=== PATIENT | male | born 1945 | race Caucasian/White ===

== ENCOUNTER 2016-10-15 17:01 | Inpatient (IN) ==
--- NOTE | 2016-10-15 17:18 | Emergency Department Note ---
Disposition Clinical Impression: Community acquired pneumonia, Atrial fibrillation with RVR Disposition: Admitted As Inpatient Condition: Fair Referrals: Hiren Adame Jr, MD [Primary Care Provider] - Forms: ED Satisfaction Letter Time of Disposition: 18:12 SOB HPI - General Chief Complaint: ED Shortness of Breath/Dyspnea Stated Complaint: "I think I have pneumonia" Time Seen by Provider: 10/15/16 17:11 Source: patient, family Limitations: no limitations Nursing Notes Reviewed: Yes Vital Signs Reviewed: Yes - History of Present Illness 71-year-old who has been sick for a couple weeks he was seen at the urgent care and given antibiotics to follow-up with his doctor still hasn't felt any better next has developed somewhat worse he thinks he may have pneumonia. Patient has a cough. He does have a history of atrial fibrillation when he arrives here his heart rates in the 130s. The patient states he has not have an EKG done at the urgent care or at his doctor's office. The patient did have a cardiac catheter back in April but showed severe triple vessel disease and an EF of 35%. Pt Subjective Complaint: shortness of breath, cough Onset (ago): week(s) Context: recent illness Severity: mild, moderate Consistency/Duration: constant Improves with: nothing Worsens with: exertion Known history of: congestive heart failure Associated symptoms: Reports: cough, wheezing Treatment prior to arrival: none Cough Description: Involuntary Cough Frequency: Intermittent - Related Data Home Medications Medication Instructions Recorded Confirmed Cholecalciferol (D-3) [Vitamin D] 1,000 unit PO DAILY 05/24/16 09/12/16 LORazepam [Ativan] 1 mg PO TID PRN 05/24/16 09/12/16 Omeprazole [PriLOSEC] 40 mg PO DAILY 05/24/16 09/12/16 Pyridoxine HCl [Vitamin B-6] 100 mg PO DAILY MDD 100mg 05/24/16 09/12/16 Aspirin Enteric Coated [Aspirin EC] 81 mg PO DAILY 09/12/16 09/12/16 Atorvastatin [Lipitor] 80 mg PO HS 09/12/16 09/12/16 Carvedilol [Coreg] 12.5 mg PO BIDWM 09/12/16 09/12/16 Cyproheptadine HCl 4 mg PO TID 09/12/16 09/12/16 Digoxin [Lanoxin] 0.25 mg PO DAILY 09/12/16 09/12/16 Fluticasone Propionate Nasal 50 mcg NS BID 09/12/16 09/12/16 [Flonase] Furosemide [Lasix] 40 mg PO BID 09/12/16 09/12/16 Lisinopril [Zestril] 5 mg PO DAILY 09/12/16 09/12/16 Metoclopramide HCl 5 mg PO BID PRN 09/12/16 09/12/16 Oxygen 2 l IN AD 09/12/16 09/12/16 Spironolactone [Aldactone] 12.5 mg PO DAILY MDD 12.5mg 09/12/16 09/12/16 Previous Rx's Medication Instructions Recorded Ciprofloxacin HCl [Cipro] 500 mg PO BID #20 tablet 09/12/16 Allergies Allergy/AdvReac Type Severity Reaction Status Date / Time Penicillins AdvReac Nausea Verified 05/24/16 13:13 Constitutional: Denies: fever, chills, weakness, weight change Eyes: Denies: eye pain, eye discharge, vision change ENT ED: Denies: ear pain, throat pain, dental pain, hearing loss, epistaxis, congestion, dysphagia Cardiovascular: Denies: chest pain, palpitations, dyspnea on exertion, edema, syncope Respiratory: Reports: cough, dyspnea, wheezes. Denies: hemoptysis, stridor Gastrointestinal: Denies: abdominal pain, nausea, vomiting, diarrhea, constipation, hematemesis, melena, hematochezia Genitourinary: Denies: urgency, dysuria, frequency, hematuria Musculoskeletal: Denies: back pain, neck pain, arthralgia, myalgia Integumentary: Denies: rash, abrasion, lesions Neurological: Denies: headache, weakness, numbness, paresthesias, confusion, abnormal gait, vertigo Psychiatric: Denies: anxiety, depression, suicidal thoughts, homicidal thoughts , auditory hallucinations, visual hallucinations Endocrine: Denies: fatigue Hematological/Lymphatic: Denies: easy bleeding, easy bruising Allergic/Immunologic: Denies: facial swelling, urticaria Past Medical History - Past Medical History Medical history: Reports: asthma, atrial fibrillation, CHF, coronary artery disease, CVA, GERD, hyperlipidemia, hypertension, kidney stones, myocardial infarction, other Surgical history: Reports: coronary bypass (CABG) (quad in 1994) Psychiatric history: Reports: depression - Social History Smoking Status: Former smoker Smokeless Tobacco Status: No Alcohol use: Reports: none Drug use: Reports: none Physical Exam - General Limitations: no limitations General appearance: alert - Head Head exam: atraumatic, normocephalic, normal inspection - Eye Eye exam: Present: normal appearance, PERRL, EOMI - ENT ENT exam: normal exam, normal oropharynx, mucous membranes moist - Neck Neck exam: Present: normal inspection, full ROM, trachea midline - Chest Chest inspection: Present: normal inspection, symmetric chest wall rise - Respiratory Respiratory exam: Present: wheezes - Cardiovascular Cardiovascular exam: Present: tachycardia, irregular rhythm - Abdominal Exam Abdominal exam: Present: soft, Non-Tender. Absent: tenderness, distention, guarding, rebound, rigidity - Extremities Exam Extremities exam: Present: normal inspection, full ROM. Absent: tenderness, pedal edema - Expanded Lower Extremity Exam Neurovascular/Tendon exam: Absent: motor deficit, sensory deficit, tendon deficit Gait: observed and normal - Back Exam Back exam: Present: normal inspection, full ROM. Absent: tenderness - Neurological Exam Neurological exam: Present: alert, oriented X3 - Psychiatric Psychiatric exam: Present: normal affect, normal mood - Skin Skin exam: Present: warm, dry, intact, normal color Course - Reevaluation(s) Reevaluation #1: 1-year-old gentleman with a history of atrial fibrillation comes in with increasing cough gesture and he feels he has pneumonia. Chest x-ray did indeed show a right lower lobe airspace disease. Patient given IV antibiotics. Patient was also found to have A. fib with RVR. Previous cardiac catheter shows an EF of 35%. Consultation with Dr. Llanos cardiology recommends IV Lopressor 5 mg every 6 when necessary and increase his Coreg to 25 mg twice a day. Patient will be admitted. Time: 18:22 - Consultations Consultation #1: Discussed with Dr. Sundeep Llanos, he recommends Lopressor 5 mg IV every 6 when necessary and increase the Coreg 25 mg twice a day. Time: 18:13 Consultation #2: Discussed with , admit. Time: 18:33 Vital Signs Temperature 0 F L 10/15/16 17:03 Pulse Rate 84 10/15/16 17:03 Respiratory Rate 20 10/15/16 17:03 Blood Pressure 133/69 10/15/16 17:03 O2 Sat by Pulse Oximetry 84 L 10/15/16 17:03 Temperature 0 F L 10/15/16 17:03 Pulse Rate 117 10/15/16 18:30 Respiratory Rate 18 10/15/16 18:30 Blood Pressure 105/71 10/15/16 18:30 O2 Sat by Pulse Oximetry 93 L 10/15/16 18:30 Oxygen Delivery Oxygen Delivery Nasal Cannula Shortness of Breath/Dyspnea - Lab Data Lab results reviewed: Yes I reviewed the patient's lab results. Result diagrams: 10/15/16 17:21 10/15/16 17:21 Lab Results 10/15/16 10/15/16 10/15/16 Range/Units 17:21 17:21 17:21 WBC 26.7 H (4.3-11.1) K/mcL RBC 5.18 (4.19-5.50) M/mcL Hgb 13.7 (12.9-16.9) g/dL Hct 43.7 (37.5-50.1) % MCV 84.4 (83.0-100.0) fL MCH 26.4 L (28.0-33.3) pg MCHC 31.4 L (31.6-35.5) g/dL RDW 15.6 H (11.5-14.5) % Plt Count 415 H (140-400) K/mcL MPV 10.0 (9.4-12.4) fL Seg Neutrophils % 92.0 % Band Neutrophils % 2.0 (0-4) % Lymphocytes % 6.0 % Neutrophils # 25.1 H (1.6-8.9) K/mcL Lymphocytes # 1.6 (0.6-4.6) K/mcL Platelet Estimate Increased H (Normal) Anisocytosis 1+ A (Not Present) Sodium 140 (136-145) mEq/L Potassium 4.4 (3.5-4.5) mEq/L Chloride 100 (98-109) mEq/L Carbon Dioxide 29 (19-29) mEq/L BUN 18 (8-26) mg/dL Creatinine 1.46 H (0.72-1.25) mg/dL Est GFR ( Amer) 58 L (> 60) Est GFR (Non-Af Amer) 48 L (> 60) BUN/Creatinine Ratio 12 (6-26) Glucose 143 H (70-99) mg/dL Calculated Osmolality 294 (280-300) Lactic Acid 2.1 (0.5-2.2) mmol/L Calcium 9.4 (8.6-10.8) mg/dL Troponin I (0-0.03) ng/mL B-Natriuretic Peptide (0-100) pg/mL 10/15/16 10/15/16 Range/Units 17:21 17:21 WBC (4.3-11.1) K/mcL RBC (4.19-5.50) M/mcL Hgb (12.9-16.9) g/dL Hct (37.5-50.1) % MCV (83.0-100.0) fL MCH (28.0-33.3) pg MCHC (31.6-35.5) g/dL RDW (11.5-14.5) % Plt Count (140-400) K/mcL MPV (9.4-12.4) fL Seg Neutrophils % % Band Neutrophils % (0-4) % Lymphocytes % % Neutrophils # (1.6-8.9) K/mcL Lymphocytes # (0.6-4.6) K/mcL Platelet Estimate (Normal) Anisocytosis (Not Present) Sodium (136-145) mEq/L Potassium (3.5-4.5) mEq/L Chloride (98-109) mEq/L Carbon Dioxide (19-29) mEq/L BUN (8-26) mg/dL Creatinine (0.72-1.25) mg/dL Est GFR ( Amer) (> 60) Est GFR (Non-Af Amer) (> 60) BUN/Creatinine Ratio (6-26) Glucose (70-99) mg/dL Calculated Osmolality (280-300) Lactic Acid (0.5-2.2) mmol/L Calcium (8.6-10.8) mg/dL Troponin I 0.01 (0-0.03) ng/mL B-Natriuretic Peptide 163 H (0-100) pg/mL - Radiology Data Radiology results reviewed: Yes I reviewed the patient's radiology results. Chest X-Ray 10/15/16 17:11 IMPRESSION: Suspect patchy airspace disease in the right lung base. D/ / Narayan Swartz MD / Narayan Swartz MD Interpreting Provider: Narayan Swartz MD - EKG Data EKG attestation: Yes I reviewed and interpreted this EKG. Rate: Reports: tachycardia Rhythm: Reports: A.Fib Interpretation: Reports: nonspecific ST-T wave changes Critical Care Time Critical Care Time: Yes Total Critical Care Time: 30 Attestation: The high probability of a clinically significant, sudden or life threatening deterioration of the [cardiovascular] system(s) required my full and direct attention, intervention and personal management. The aggregate critical care time was [30] minutes. This time is in addition to time spent performing reported procedures but includes the following: [x] Data Review and interpretation [x] Patient assessment and monitoring of vital signs [x] Documentation [x] Medication orders and management
[2016-10-15 17:30] LABS: Hemoglobin 13.7 g/dL (12.9-16.9); Mean Corpuscular Volume 84.4 fL (83.0-100.0)
[2016-10-15 17:32] LABS: Hematocrit 43.7 % (37.5-50.1); Mean Corpuscular HGB Conc 31.4 g/dL (31.6-35.5); Mean Corpuscular Hemoglobin 26.4 pg (28.0-33.3); Platelet Count 415 K/mcL (140-400); Red Blood Count 5.18 M/mcL (4.19-5.50); Red Cell Distribution Width 15.6 % (11.5-14.5)
[2016-10-15 17:43] LABS: Calcium 9.4 mg/dL (8.6-10.8); Potassium 4.4 mEq/L (3.5-4.5)
[2016-10-15 17:51] LABS: Lymphocytes # 1.6 K/mcL (0.6-4.6); Neutrophils # 25.1 K/mcL (1.6-8.9)
[2016-10-15 17:52] LABS: Anisocytosis 1+ (Not Present); Platelet Estimate Increased (Normal)
[2016-10-15] MEDS ORDERED: Levofloxacin 750 MG/150 ML 750 MG/150 ML BAG IVPB ONE (18:12)
[2016-10-15] MEDS ORDERED: *HR* Metoprolol 5 MG/5 ML VIAL IVP ONE (18:21)
[2016-10-15] MEDS ORDERED: Acetaminophen 325 MG TABLET PO PRN (22:11)
[2016-10-15] MEDS ORDERED: Naloxone 0.4 MG/ML INJ IVP PRN (22:11)
[2016-10-15] MEDS ORDERED: *HR* OxyCODONE Immed Rel 5 MG TABLET PO PRN (22:11)
[2016-10-15] MEDS ORDERED: *HR* Morphine 2 MG/ML SYRINGE IVP PRN (22:11)
[2016-10-15] MEDS ORDERED: Ondansetron 4 MG/2 ML VIAL IVP PRN (22:11)
[2016-10-15] MEDS ORDERED: Benzonatate 100 MG CAPSULE PO PRN (22:22)
[2016-10-15] MEDS ORDERED: methylPREDNISolone 125 MG/2 ML VIAL IVP STA (22:24)
[2016-10-15] MEDS ORDERED: Nicotine 21 MG PATCH.TD24 TD PRN (22:24)
[2016-10-15] MEDS ORDERED: *HR* Metoprolol 5 MG/5 ML VIAL IVP PRN (22:24)
[2016-10-15] MEDS ORDERED: Albuterol 2.5 MG/3 ML NEBULIZER IH PRN (22:24)
[2016-10-15] MEDS ORDERED: NON-FORMULARY MEDICATION 1 EACH EACH (Oxygen [Oxygen] 2 L) IN SCH (22:30)
[2016-10-15] MEDS ORDERED: *HR* Heparin 5,000 UNIT/ML VIAL SQ SCH (22:30)
[2016-10-15] MEDS ORDERED: *HR* Heparin 5,000 UNIT/ML VIAL IVP ONE (22:40)
[2016-10-15] MEDS ORDERED: Amiodarone Premix 150 MG/100 ML BAG IVPB ONE (22:40)
[2016-10-15] MEDS ORDERED: Magnesium Sulfate 1 GM in D5% in Water 100 ML IVPB ONE (22:40)
[2016-10-15] MEDS ORDERED: Amiodarone Premix 360 MG/200 ML BAG IVC ONE (22:40)
[2016-10-15] MEDS ORDERED: *HR* Heparin 5,000 UNIT/ML VIAL IVP PRN ×2 (22:40)
[2016-10-15] MEDS ORDERED: Amiodarone Premix 360 MG/200 ML BAG IVC SCH (22:45)
--- NOTE | 2016-10-15 22:53 | Internal Med History&Physical ---
Date of Encounter: 10/15/16 Time of Encounter: 22:00 Assessment and Plan (1) Acute and chronic respiratory failure with hypoxia Current visit: Yes Status: Acute . (2) Chronic respiratory failure with hypoxia Current visit: Yes Status: Chronic . (3) Dependence on continuous supplemental oxygen Current visit: Yes Status: Chronic . (4) Ischemic cardiomyopathy Current visit: Yes Status: Chronic . (5) S/P CABG x 4 Current visit: Yes Status: Chronic . (6) Morbid obesity with BMI of 40.0-44.9, adult Current visit: Yes Status: Chronic . (7) Coronary artery disease Current visit: Yes Status: Chronic . Qualifiers: Coronary Disease-Associated Artery/Lesion type: bypass graft [place] vs. transplanted heart: [place] heart Associated angina: angina presence unspecified Qualified Code(s): I25.810 - Atherosclerosis of coronary artery bypass graft(s) without angina pectoris (8) Essential hypertension Current visit: Yes Status: Chronic . (9) Paroxysmal a-fib Current visit: Yes Status: Chronic . (10) Nonsustained ventricular tachycardia Current visit: Yes Status: Acute . (11) Community acquired pneumonia Current visit: Yes Status: Acute . (12) Atrial fibrillation with RVR Current visit: Yes Status: Acute . Internal Medicine - H&P: HPI Chief complaint: Difficulty breathing Admitted From: Emergency Dept Plans for Post Hospital Care: Home History of present illness: Mr. Felix is a 71 year old male is admitted to [facility] to the emergency department presents with complaints of difficulty in breathing and concerns of developing a pneumonia. He reports a cough and chest congestion audible wheezing and malaise of several days' duration. Been sick however for a couple of weeks and has been seen in the urgent care setting and given antibiotic therapy for bronchitis in spite of this he feels that his symptoms worsened cough is worsened feeling of malaise and easy fatigability has progressed. She possesses a history of atrial fibrillation and upon arrival he was found to be in rapid ventricular rate at 130s. In April 2016 the patient had underwent left heart catheterization which revealed severe triple-vessel coronary artery disease and a left ventricular ejection fraction of 35%. She further includes four-vessel coronary artery bypass grafting 1994, a history of CVA, hyperlipidemia, hypertension, CKD, CHF. She responded to intravenous Lopressor for rate control of RVR with a rate improving to 80s. On chronic hypoxic respiratory failure was apparent systemic inflammatory response syndrome criteria and was present at admission. Initial troponin 0.01 BNP 163. Chest x-ray demonstrated a patchy airspace disease in the right lung base. Sepsis criteria and thus present at admission. He is admitted at this time for further evaluation and disposition. The patient was visited and interviewed and examined. Cumulative laboratory and radiographic data base was considered and discussed. Pertinent ancillary medical records including ECW and PCI documentation was reviewed and considered. Given the patient's presenting concerns, past medical history, clinical findings and symptoms, he is admitted at this time will undergo further evaluation and disposition. Orders were written as per the computerized physician parcel post order clerk system.......................................................................... .................... Consultative opinions will be sought as clinical circumstances justify. Pain management needs will be addressed. Laboratory/ radiographic data base will be updated as appropriate. Studies include: Cultures of blood urine sputum, cardiac injury panel, BNP, pt/inr, aptt , metabolic/ hematologic panel, magnesium, phosphorus, ionized calcium, thyroid /lipid profile, A1c, C-peptide, CRP, sedimentation rate, respiratory infection profile, respiratory virus panel, blood gas, UA, lactic acid, serologies, etc. Precautions: Aspiration, fall, delirium protocol/surveillance initiated. Telemetry with continuous hemodynamic monitoring and pulse oximetry initiated. Empiric antibiotic coverage: Intravenous Rocephin and azithromycin pending culture data. Special studies: CT/CTA chest, chest x-ray, telemetry, EKG, echocardiogram. Pulmonary toilet: Incentive spirometry, aerosol bronchodilator, mucolytic, antitussive, supplemental oxygen. Corticosteroid therapy. CPAP/BiPAP supplemental oxygen delivery employed. Aerosol Mucomyst therapy may be employed. Fluid and electrolyte repletion efforts will proceed. Careful attention to fluid balance and renal recovery will be emphasized. Avoidance of nephrotoxic exposure and adverse drug drug interaction in the setting of impaired renal function will be monitored closely. Acute coronary syndrome protocol/surveillance initiated. DVT and PUD prophylaxis initiated: PPI therapy, intermittent pneumatic cuffs. Subcutaneous heparin/Lovenox. Early ambulation will be encouraged. Immunization updates recommended. Influenza and pneumococcal vaccinations as part of ongoing preventative healthcare recommendations strongly recommended. Smoking cessation counseling briefly addressed. Patient is a former smoker. Advanced care directive discussion briefly addressed. Patient does not declare any healthcare restrictions at this time. Cardiovascular risk appraisal and cardiovascular risk reduction efforts will be emphasized. Physical /occupational therapy may be counseled to evaluate patient's functional capacity and progress mobility if circumstances justify. Nutrition/diabetes education counseling may be considered as circumstances justify. Outpatient medication schedules will be reviewed, confirmed and facilitated as appropriate. Reconciliation of home treatments including adjustments, substitutions and reintroduction into the treatment regimen will address necessary maintenance therapies for chronic pre-existing medical conditions. Plan of care has been reviewed and discussed in detail with the patient. Questions addressed. Hospital course dictated by clinical findings, treatment response and potential consultative interventions. Patient is at risk for further acute clinical decline due to age, chief complaints and comorbid conditions. Condition is serious. Prognosis is guarded. CODE STATUS is full. Past Med Surg Social Fam HX - Past Medical History Medical history: asthma, atrial fibrillation, CHF, coronary artery disease, CVA , GERD, hyperlipidemia, hypertension, kidney stones, myocardial infarction, other Psychiatric history: depression - Past Surgical History Surgical History: coronary bypass (CABG) - Social History Smoking Status: Former smoker Smokeless Tobacco Status: No Alcohol use: none Drug use: none - Family History Mother Family Member Ethnicity: Non- Living Status: Hx Family Cancer: Yes (Patient unable to recall.) Father Family Member Ethnicity: Non- Living Status: Hx Family Cancer: Yes (Kidney cancer) Brother Hx Family Cancer: Yes (Lung and bone cancer) Sister Family Member Ethnicity: Non- Living Status: Hx Family Cardiac Disorders: Yes (Heart disease; [place]) Internal Medicine - H&P: Meds Cholecalciferol (D-3) [Vitamin D] 1,000 unit PO DAILY 05/24/16 [History] LORazepam [Ativan] 1 mg PO TID PRN 05/24/16 [History] Omeprazole [PriLOSEC] 40 mg PO DAILY 05/24/16 [History] Pyridoxine HCl [Vitamin B-6] 100 mg PO DAILY 05/24/16 [History] Aspirin Enteric Coated [Aspirin EC] 81 mg PO DAILY 09/12/16 [History] Atorvastatin [Lipitor] 80 mg PO HS 09/12/16 [History] Carvedilol [Coreg] 12.5 mg PO BIDWM 09/12/16 [History] Cyproheptadine HCl 4 mg PO TID 09/12/16 [History] Digoxin [Lanoxin] 0.25 mg PO DAILY 09/12/16 [History] Fluticasone Propionate Nasal [Flonase] 50 mcg NS BID 09/12/16 [History] Furosemide [Lasix] 40 mg PO BID 09/12/16 [History] Lisinopril [Zestril] 5 mg PO DAILY 09/12/16 [History] Metoclopramide HCl 5 mg PO BID PRN 09/12/16 [History] Oxygen 2 l IN AD 09/12/16 [History] Spironolactone [Aldactone] 12.5 mg PO DAILY 09/12/16 [History] Potassium Chloride [Klor-Con Sprinkle] 10 meq PO BID 10/16/16 [History] GuaiFENesin ER [Mucinex] 600 mg PO BID #14 tbbp.12hr 10/19/16 [Rx] Levofloxacin [Levaquin] 500 mg PO DAILY #5 tablet 10/19/16 [Rx] Warfarin [Coumadin] 5 mg PO DAILY@1800 #7 tablet 10/19/16 [Rx] Allergies Penicillins Adverse Reaction (Verified 05/24/16 13:13) Nausea All Systems PM: A 10-system review of systems was performed and is negative for pertinent findings except as documented above in the HPI. - Constitutional Constitutional: fatigue, malaise, no chills, no fever(s), no night sweats - EENT Eyes: as per HPI, no change in vision, no discharge, no pain, no photophobia Ears: as per HPI, no ear discharge, no ear pain, no tinnitus Nose, mouth and throat: as per HPI, no dysphagia, no nasal discharge, no neck pain, no sore throat - Cardiovascular Cardiovascular ROS IM: as per HPI, no chest pain, no diaphoresis, no dyspnea, no lightheadedness, no palpitations, no syncope - Respiratory Respiratory: as per HPI, cough, dyspnea, dyspnea on exertion, wheezing, chest congestion, no excessive phlegm production - Gastrointestinal Gastrointestinal: as per HPI, no abdominal pain, no diarrhea, no hematemesis, no hematochezia, no melena, no nausea, no vomiting - Genitourinary Genitourinary ROS male: as per HPI - Musculoskeletal Musculoskeletal ROS IM: as per HPI, arthralgias, no numbness, no tingling - Integumentary Integumentary IM: as per HPI, no rash, no unusual bruising - Neurological Neurological ROS: as per HPI, no confusion, no convulsions, no focal weakness, no numbness, no tingling, no tremor(s) - Psychiatric Psychiatric: as per HPI - Endocrine Endocrine IM: as per HPI - Hematologic/Lymphatic Hematologic/Lymphatic: as per HPI, no easy bruising - Allergic/Immunologic Allergic/Immunologic: as per HPI - Constitutional Vitals: Temp Pulse Resp BP Pulse Ox 98.4 F 70 20 127/83 93 L 10/15/16 20:11 10/15/16 20:11 10/15/16 20:11 10/15/16 20:11 10/15/16 20:11 Vital Signs Temp Pulse Resp BP Pulse Ox 10/15/16 20:11 98.4 F 70 20 127/83 93 L 10/15/16 20:00 18 105/71 10/15/16 18:30 117 18 105/71 93 L 10/15/16 18:19 131 18 121/79 93 L 10/15/16 17:13 138 26 135/112 92 L 10/15/16 17:03 0 F L 84 20 133/69 84 L Intake and Output 10/15/16 10/15/16 10/15/16 07:59 15:59 23:59 Intake Total 150 / 150 Balance 150 / 150 Intake: IV Fluids 150 / 150 Levaquin 750mg/150 mL 750 150 / 150 mg In 150 ml @ 100 mls/ hr IVPB ONCE ONE Rx#: [id number] Oral 0 / 0 Other: # Voids 0 Weight 111 kg Patient Weight 10/15/16 23:59 Weight 111 kg General appearance: Present: mild distress, A&O X 3, morbidly obese, answers questions appropriately - Head Head exam: Present: atraumatic, normocephalic - Eye Eye exam: Present: EOMI, PERRL, conjuntiva pink, sclera anicteric Pupils: Present: normal accommodation, PERRL - ENT ENT exam: Present: mucous membranes moist, normal oropharynx - Neck Neck exam general surgery: Present: full ROM, supple, trachea midline. Absent: lymphadenopathy - Respiratory Respiratory exam: Present: decreased breath sounds, respiratory distress, rhonchi, wheezes. Absent: accessory muscle use, CTAB, rales - Cardiovascular Cardiovascular exam: Present: irregular rhythm, +S1, +S2, tachycardia. Absent: diastolic murmur, gallop, rubs, systolic murmur - GI/Abdominal GI/Abdominal exam: Present: normal bowel sounds, soft, no peritoneal signs. Absent: distended, tenderness - Extremities Exam Extremities exam: Present: full ROM, warm, radial pulses palpable and symetrical. Absent: calf tenderness, cyanotic, pedal edema - Neurological Exam Neurological exam: Present: alert, CN II-XII intact, oriented X3, no focal deficits. Absent: pronater drift, facial droop, speech deficit - Psychiatric Psychiatric exam: Present: normal affect, normal mood - Skin Skin exam: Present: dry, intact, warm Internal Med - H&P Results - Labs CBC & Chem 7: 10/19/16 04:20 10/18/16 05:32 Labs: Short CBC 10/15/16 Range/Units 17:21 WBC 26.7 H (4.3-11.1) K/mcL Hgb 13.7 (12.9-16.9) g/dL Hct 43.7 (37.5-50.1) % Plt Count 415 H (140-400) K/mcL Neutrophils # 25.1 H (1.6-8.9) K/mcL BMP 10/15/16 Range/Units 17:21 Sodium 140 (136-145) mEq/L Potassium 4.4 (3.5-4.5) mEq/L Chloride 100 (98-109) mEq/L Carbon Dioxide 29 (19-29) mEq/L BUN 18 (8-26) mg/dL Creatinine 1.46 H (0.72-1.25) mg/dL Glucose 143 H (70-99) mg/dL Calcium 9.4 (8.6-10.8) mg/dL Cardiac Enzymes 10/15/16 Range/Units 17:21 Troponin I 0.01 (0-0.03) ng/mL Abnormal lab results WBC 26.7 K/mcL (4.3-11.1) H 10/15/16 17:21 MCH 26.4 pg (28.0-33.3) L 10/15/16 17:21 MCHC 31.4 g/dL (31.6-35.5) L 10/15/16 17:21 RDW 15.6 % (11.5-14.5) H 10/15/16 17:21 Plt Count 415 K/mcL (140-400) H 10/15/16:21 Neutrophils # 25.1 K/mcL (1.6-8.9) H 10/15/16 17:21 Platelet Estimate Increased (Normal) H 10/15/16 17:21 Anisocytosis 1+ (Not Present) A 10/15/16: Creatinine 1.46 mg/dL (0.72-1.25) H 10/15/16 17:21 Est GFR ( Amer) 58 (> 60) L 10/15/16:21 Est GFR (Non-Af Amer) 48 (> 60) L 10/15/16: Glucose 143 mg/dL (70-99) H 10/15/16 17:21 B-Natriuretic Peptide 163 pg/mL (0-100) H 10/15/16:21 Laboratory Last Values WBC 26.7 K/mcL (4.3-11.1) H 10/15/16: RBC 5.18 M/mcL (4.19-5.50) 10/15/16 17:21 Hgb 13.7 g/dL (12.9-16.9) 10/15/16: Hct 43.7 % (37.5-50.1) 10/15/16: MCV 84.4 fL (83.0-100.0) 10/15/16: MCH 26.4 pg (28.0-33.3) L 10/15/16: MCHC 31.4 g/dL (31.6-35.5) L 10/15/16 17:21 RDW 15.6 % (11.5-14.5) H 10/15/16 17:21 Plt Count 415 K/mcL (140-400) H 10/15/16:21 MPV 10.0 fL (9.4-12.4) 10/15/16 17:21 Seg Neutrophils % 92.0 % 10/15/16 17:21 Band Neutrophils % 2.0 % (0-4) 10/15/16 17:21 Lymphocytes % 6.0 % 10/15/16 17:21 Neutrophils # 25.1 K/mcL (1.6-8.9) H 10/15/16 17:21 Lymphocytes # 1.6 K/mcL (0.6-4.6) 10/15/16 17:21 Platelet Estimate Increased (Normal) H 10/15/16 17:21 Anisocytosis 1+ (Not Present) A 10/15/16 17:21 Sodium 140 mEq/L (136-145) 10/15/16 17:21 Potassium 4.4 mEq/L (3.5-4.5) 10/15/16 17:21 Chloride 100 mEq/L (98-109) 10/15/16 17:21 Carbon Dioxide 29 mEq/L (19-29) 10/15/16 17:21 BUN 18 mg/dL (8-26) 10/15/16 17:21 Creatinine 1.46 mg/dL (0.72-1.25) H 10/15/16 17:21 Est GFR ( Amer) 58 (> 60) L 10/15/16 17:21 Est GFR (Non-Af Amer) 48 (> 60) L 10/15/16 17:21 BUN/Creatinine Ratio 12 (6-26) 10/15/16 17:21 Glucose 143 mg/dL (70-99) H 10/15/16 17:21 Calculated Osmolality 294 (280-300) 10/15/16 17:21 Lactic Acid 2.1 mmol/L (0.5-2.2) 10/15/16 17:21 Calcium 9.4 mg/dL (8.6-10.8) 10/15/16 17:21 Troponin I 0.01 ng/mL (0-0.03) 10/15/16 17:21 B-Natriuretic Peptide 163 pg/mL (0-100) H 10/15/16 17:21 - Impressions Chest X-Ray 10/15/16 17:11 IMPRESSION: Suspect patchy airspace disease in the right lung base. D/ / Narayan Swartz MD / Narayan Swartz MD Interpreting Provider: Naryaan Swartz MD - Attending Attestation My signature below is to certify that this patient is under my care and that I, or nurse practitioner, or a physician's assistant golf course superintendent, or resident physician working with me, has had a [id number] encounter with this patient. Allergies Penicillins Adverse Reaction (Verified 05/24/16 13:13) Nausea Home Medications Medication Instructions Recorded Confirmed Type Cholecalciferol (D-3) [Vitamin D] 1,000 unit PO DAILY 05/24/16 10/15/16 History LORazepam [Ativan] 1 mg PO TID PRN 05/24/16 10/15/16 History Omeprazole [PriLOSEC] 40 mg PO DAILY 05/24/16 10/15/16 History Pyridoxine HCl [Vitamin B-6] 100 mg PO DAILY MDD 100mg 05/24/16 10/15/16 History Aspirin Enteric Coated [Aspirin EC] 81 mg PO DAILY 09/12/16 10/15/16 History Atorvastatin [Lipitor] 80 mg PO HS 09/12/16 10/15/16 History Carvedilol [Coreg] 12.5 mg PO BIDWM 09/12/16 10/15/16 History Cyproheptadine HCl 4 mg PO TID 09/12/16 09/12/16 History Digoxin [Lanoxin] 0.25 mg PO DAILY 09/12/16 09/12/16 History Fluticasone Propionate Nasal 50 mcg NS BID 09/12/16 09/12/16 History [Flonase] Furosemide [Lasix] 40 mg PO BID 09/12/16 10/15/16 History Lisinopril [Zestril] 5 mg PO DAILY 09/12/16 10/15/16 History Metoclopramide HCl 5 mg PO BID PRN 09/12/16 10/15/16 History Oxygen 2 l IN AD 09/12/16 10/15/16 History Spironolactone [Aldactone] 12.5 mg PO DAILY MDD 12.5mg 09/12/16 10/15/16 History I & O 03/15/17 10/13/16 10/14/16 10/15/16 23:59 23:59 23:59 23:59 Intake Total 150 / 150 Balance 150 / 150 Weight 111 kg Intake: IV Fluids 150 / 150 Levaquin 750mg/150 mL 750 150 / 150 mg In 150 ml @ 100 mls/ hr IVPB ONCE ONE Rx#: [id number] Oral 0 / 0 Other: # Voids 0 Medications Acetaminophen (Tylenol) 650 mg PO Q6HR PRN PRN Reason: Mild Pain (1-3) Stop: 04/16/17 22:12 Albuterol Sulfate (Proventil Neb) 2.5 mg IH Q2H PRN PRN Reason: Shortness Of Breath/Wheezing Stop: 04/16/17 22:25 Albuterol/Ipratropium (Duoneb) 3 ml IH QIDR RUSTAM Stop: 04/16/17 23:01 Aspirin (Aspirin Ec) 81 mg PO DAILY [facility] Stop: 04/17/17 09:01 Atorvastatin Calcium (Lipitor) 80 mg PO HS [facility] Stop: 04/16/17 22:31 Benzonatate (Tessalon) 200 mg PO TID PRN PRN Reason: Cough Stop: 04/16/17 22:23 Carvedilol (Coreg) 12.5 mg PO BIDWM RUSTAM PRN Reason: Protocol Stop: 04/17/17 08:01 Docusate Sodium (Colace) 100 mg PO BID PRN PRN Reason: Constipation Stop: 04/16/17 22:12 Furosemide (Lasix) 40 mg PO BID [facility] Stop: 04/17/17 09:01 Guaifenesin (Mucinex) 600 mg PO BID [facility] Stop: 04/17/17 09:01 Heparin Sodium (Porcine) (Heparin) 7,800 unit 70 unit/kg (7800 unit) IVP Q6HR PRN PRN Reason: SEE COMMENTS Stop: 04/16/17 22:41 Heparin Sodium (Porcine) (Heparin) 3,900 unit 35 unit/kg (3900 unit) IVP Q6H PRN PRN Reason: SEE COMMENTS Stop: 04/16/17 22:41 Sodium Chloride (0.9 % Sodium Chloride) 1,000 mls @ 50 mls/hr IVC .Q20H [facility] Stop: 04/16/17 22:16 Azithromycin 500 mg/ Dextrose 250 mls @ 252 mls/hr IVPB Q24H [facility]USTAM Stop: 04/17/17 09:01 Ceftriaxone Sodium 1,000 mg/ (Dextrose) 100 mls @ 200 mls/hr IVPB Q12HR RUSTAM Stop: 04/16/17 23:01 Amiodarone HCl/Dextrose (Amiodarone 360mg/200ml Drip Premix) 360 mg in 200 mls @ 33.333 mls/hr IVC ONCE ONE PRN Reason: 1 MG/MIN Stop: 10/16/16 04:39 Amiodarone HCl/Dextrose (Amiodarone 360mg/200ml Drip Premix) 360 mg in 200 mls @ 16.667 mls/hr IVC CONT RUSTAM PRN Reason: 0.5 MG/MIN Stop: 04/16/17 22:46 Amiodarone HCl/Dextrose (Amiodarone 150mg/100ml Premix) 150 mg in 100 mls @ 300 mls/hr IVPB ONCE ONE Stop: 10/15/16 22:59 Heparin Sodium/Dextrose (Heparin 25,000 Unit/500 Ml D5w) 25,000 unit in 500 mls @ 31.08 mls/hr IVC .Q16H6M RUSTAM; 14 UNIT/KG/HR PRN Reason: Protocol Stop: 04/16/17 22:46 Magnesium Sulfate 1 gm/ (Dextrose) 102 mls @ 100 mls/hr IVPB ONCE ONE Stop: 10/15/16 23:41 Lisinopril (Zestril) 5 mg PO DAILY RUSTAM PRN Reason: Protocol Stop: 04/17/17 09:01 Lorazepam (Ativan) 1 mg PO TID PRN PRN Reason: Anxiety Stop: 04/16/17 22:18 Metoclopramide HCl (Reglan) 5 mg PO BID PRN PRN Reason: Nausea Metoprolol Tartrate (Lopressor) 5 mg IVP Q6HR PRN PRN Reason: SEE COMMENTS Stop: 04/16/17 22:25 Morphine Sulfate (Morphine Sulfate) 2 mg IVP Q4HR PRN PRN Reason: Severe Pain (7-10) Stop: 04/16/17 22:12 Naloxone HCl (Narcan) 0.4 mg IVP Q2MIN PRN PRN Reason: Opioid Reversal Stop: 04/16/17 22:12 Nicotine (Nicoderm) 21 mg TD DAILY PRN PRN Reason: Nicotine Cravings Stop: 04/16/17 22:31 Omeprazole (Prilosec) 40 mg PO DAILY RUSTAM PRN Reason: Protocol Stop: 04/17/17 09:01 Ondansetron HCl (Zofran) 4 mg IVP Q8HR PRN PRN Reason: Nausea And Vomiting Stop: 04/16/17 22:12 Oxycodone HCl (Roxicodone) 5 mg PO Q6HR PRN PRN Reason: Moderate Pain (4-6) Stop: 04/16/17 22:12 Prednisone (Prednisone) 40 mg PO DAILY [facility] Stop: 04/17/17 09:01 Spironolactone (Aldactone) 12.5 mg PO DAILY [facility] Stop: 04/17/17 09:01 Thiamine HCl (Vitamin B-1) 100 mg PO DAILY [facility] Stop: 04/17/17 09:01 Vitamin D (Vitamin D) 1,000 unit PO DAILY [facility] Stop: 04/17/17 09:01 Discontinued Medications Guaifenesin (Mucinex) 1,200 mg PO ONCE ONE Stop: 10/15/16 22:23 Heparin Sodium (Porcine) (Heparin) 5,000 unit SQ Q8HCO [facility]USTAM Stop: 04/16/17 22:31 Heparin Sodium (Porcine) (Heparin) 7,800 unit 70 unit/kg (7800 unit) IVP ONCE ONE Stop: 10/15/16 22:41 Levofloxacin/Dextrose (Levaquin 750mg/150 Ml) 750 mg in 150 mls @ 100 mls/hr IVPB ONCE ONE PRN Reason: Protocol Stop: 10/15/16 19:41 Last Infusion: 10/15/16 20:07 Dose: 0 mls/hr Methylprednisolone (Solu-Medrol) 125 mg IVP ONCE STA Stop: 10/15/16 22:25 Metoprolol Tartrate (Lopressor) 5 mg IVP ONCE ONE Stop: 10/15/16 18:22 Last Admin: 10/15/16 18:25 Dose: 5 mg Non-Formulary Medication (Oxygen [Oxygen]) 2 l IN AD RUSTAM Stop: 04/16/17 22:31 Nursing Notes 10/15/16 22:35 Nurse Note by Jacey Barahona Nurse was told by telemetry that patient had two 7 beat runs of vtach in the ER , and patient is having multiple pvcs right after another Dr.Hgugins notified of this and transfer to [facility] Initialized on 10/15/16 22:35 - END OF NOTE 10/15/16 20:54 Nurse Note by Jacey Barahona nurse in to see patient notified of patients arrival, patient stable Initialized on 10/15/16 20:54 - END OF NOTE 10/15/16 18:27 Transport Report by Shubham Serrano Date: 10/15/16 Transport Method: Ambulatory Penicillins Adverse Reaction (Verified 05/24/16 13:13) Nausea Resuscitation Status 10/15/16 17:11 ECG 12 lead ECG [ECG] Stat Mode Of Transportation: Ambulatory Reason For Exam: dyspnea Exam Performed At:: [facility] Oxygen: 4 Mental Status: Fall Risk: Isolation: Nurse Required for Transport: No ___ Yes Limb Restrictions: No ___ Yes Behavioral issue/Risk for Elopement: No ___ Yes Telemetry Room Notification: Destination: MRI XRAY STRESS ULTRASOUND CT DIALYSIS ENDO OTHER: Depart Time: Nurse: Transporter: Arrive Time: Received by: ___ Return Time: Nurse: Transporter: ] Initialized on 10/15/16 18:27 - END OF NOTE Orders 10/15/16 17:11 12 lead ECG assessment [RC] NOW Cardiac monitoring [RC] .ONCE Saline lock [RC] .ONCE Supplemental oxygen titration [RC] .ONCE Physician Instructions: Vital Signs Assessment [RC] PROTOCOL XR chest 1V portable [XR] Stat Mode Of Transportation: Ambulatory Reason For Exam: dyspnea Exam Performed At:: [facility] Additional Notes/Special Instructions: 4... lab @1723 ECG 12 lead ECG [ECG] Stat Mode Of Transportation: Ambulatory Reason For Exam: dyspnea Exam Performed At:: [facility] 10/15/16 17:21 B-Type Natriuretic Peptide Stat Comment: Specimen: Send someone from the department to collect Basic Metabolic Panel Stat Comment: Specimen: Send someone from the department to collect Complete Blood Count [HEME] Stat Comment: Specimen: Send someone from the department to collect Lactic Acid ([facility] Only) Stat Comment: Specimen: Send someone from the department to collect Troponin I Stat Comment: Specimen: Send someone from the department to collect 10/15/16 17:24 Culture,Blood [BC] Stat Comment: MORGAN Source: Peripheral Venipuncture Quantity: 2 Specimen: Send someone from the department to collect Specimen Description: 10/15/16 18:12 Levofloxacin 750 MG/150 ML [Levaquin 750mg/150 mL] 750 mg in 150 ml IVPB ONCE 10/15/16 18:18 Consult to Cardiology [CONS] Stat Comment: Dr. Sundeep Llanos Consulting Provider: Cardiology [facility] Reason for Consult: A. fib RVR EF 35% Time Notified: 18:19 Call Completed: Yes 10/15/16 18:21 Metoprolol [Lopressor] 5 mg IVP ONCE ONE 10/15/16 18:[address] Stat Comment: Reason for Visit: Pneumonia, A. fib RVR 10/15/16 22:11 Peripheral IV [RC] CONT Placement to Observation Routine Physician Instructions: Reason for Visit: Difficulty breathing Is VTE Prophylaxis Indicated?: Yes Vital Signs Assessment [RC] Q4H Acetaminophen [Tylenol] 650 mg PO Q6HR PRN Docusate [Colace] 100 mg PO BID PRN Morphine [Morphine Sulfate] 2 mg IVP Q4HR PRN Naloxone [Narcan] 0.4 mg IVP Q2MIN PRN Ondansetron [Zofran] 4 mg IVP Q8HR PRN OxyCODONE Immed Rel [Roxicodone] 5 mg PO Q6HR PRN Resuscitation Status: Active [RES] Routine Comment: Resuscitation Status: Full Code 10/15/16 22:12 Bed rest [RC] .CONT Physician Instructions: Cardiac Monitoring Med/Surg [RC] .CONT Telemetry Reason: ACS/CP 10/15/16 22:13 Bed rest w/bathroom privileges [RC] .PRN Continuous pulse oximetry [RC] CONT Comment: Measure intake and output [RC] QSHIFT Measure weight [RC] DAILY 10/15/16 22:14 Oxygen via nasal cannula Nasal Cannula 2 lpm Comment: Titrate O2 to main O2 sat greater than: 92% RT has an order or consult [RC] NOW 10/15/16 22:15 0.9 % Sodium Chloride 1,000 ml IVC 50 mls/hr Up with Assist Daily Comment: Physician Instructions: 10/15/16 22:17 LORazepam [Ativan] 1 mg PO TID PRN Metoclopramide [Reglan] 5 mg PO BID PRN How will this medication be supplied?: Pharmacy to Subsitute 10/15/16 22:22 Apply anti-embolic stockings [RC] .NOW Incentive Spirometry [RC] .6 TIMES PER HR WHILE AWAKE CT chest wo con [CT] Routine Mode Of Transportation: Wheelchair Reason For Exam: Hypoxic respiratory failure.? Pneumonia. Order Doctor: Franck Huggins Exam Performed At:: [facility] Allergic to Contrast: No Respiratory Infection Panel [MOLMIC] Stat Specimen: Send someone from the department to collect Venous Blood Gas Stat Comment: Specimen: Send someone from the department to collect Viral Culture,Respiratory [] Stat Comment: MORGAN Source: Nasopharyngeal Specimen: Send someone from the department to collect Specimen Description: Benzonatate [Tessalon] 200 mg PO TID PRN GuaiFENesin ER [Mucinex] 1,200 mg PO ONCE ONE 10/15/16 22:24 Legionella Antigen [RM] Routine Comment: [facility] Source: Urine,Clean Catch Specimen: Send someone from the department to collect Specimen Description: S. Pneumoniae Antigen [RM] Routine Comment: [facility] Source: Urine,Clean Catch Specimen: Send someone from the department to collect Specimen Description: Albuterol Neb [Proventil Neb] 2.5 mg IH Q2H PRN MethylPREDNISolone [Solu-MEDROL] 125 mg IVP ONCE STA Metoprolol [Lopressor] 5 mg IVP Q6HR PRN Nicotine Patch [Nicoderm] 21 mg TD DAILY PRN 10/15/16 22:25 COPD Discharge Checklist [RC] .atdischarge Cardiac monitoring [RC] .ONCE Head of bed elevation [RC] .ONCE Consult to Nurse Navigator [CONS] Routine Comment: 10/15/16 22:28 Culture,Sputum with Gram Stain [RM] Routine Comment: [facility] Source: Sputum Specimen: Send someone from the department to collect Specimen Description: 10/15/16 22:30 Troponin I Q6H Comment: Specimen: Send someone from the department to collect Atorvastatin [Lipitor] 80 mg PO HS Heparin 5,000 unit SQ Q8HCO Oxygen [Oxygen] 2 l IN AD How will this medication be supplied?: Pharmacy to Subsitute EV echocardiogram Routine Mode Of Transportation: Wheelchair Reason For Exam: Chest pain. Atrial fibrillation. Order Doctor: Franck Huggins Exam Performed At:: [facility] 10/15/16 22:39 Transfer Patient [RC] ONCE Patient Transfer: Telemetry Med/Surg Specific Unit: 2NORTH 10/15/16 22:40 Assess for bleeding [RC] .PER UNIT PROTOCOL Assess neurologic status [RC] q4h 1 MG/MIN x 6 hours, then decrease rate as directed Amiodarone Premix [ Amiodarone 360mg/200mL Drip Premix] 360 mg in 200 ml IVC ONCE 150mg/100mL over 20 minutes x 1 dose Amiodarone Premix [Amiodarone 150mg/100mL Premix] 150 mg in 100 ml IVPB ONCE Heparin 3,900 unit IVP Q6H PRN Heparin 7,800 unit IVP ONCE ONE Heparin 7,800 unit IVP Q6HR PRN Magnesium Sulfate 1 gm D5% in Water [Dextrose 5%] 100 ml IVPB ONCE 10/15/16 22:43 Magnesium Stat Specimen: Send someone from the department to collect Comment: 10/15/16 22:44 Notify provider [RC] once Physician Instructions: 10/15/16 22:45 *Standard Dose Heparin @ 14 UNIT/KG/HR [Titration] Heparin 25,000 UNIT/500 ML D5W 25,000 unit in 500 ml IVC 14 unit/kg/hr 0.5 MG/MIN X 18 hours and beyond- Amiodarone Premix [Amiodarone 360mg/200mL Drip Premix] 360 mg in 200 ml IVC CONT Heparin Standard Wt Based Infusion PROTOCOL Comment: 10/15/16 23:00 CefTRIAXone [Rocephin] 1,000 mg D5% in Water (Mini-Bag+) [Dextrose 5% (Minibag +) 100 ML] 100 ml IVPB Q12HR Ipratropium/Albuterol Neb [Duoneb] 3 ml IH QIDR 10/15/16 Breakfast Cardiac Diet Diet Modifications: 10/16/16 04:00 Activated Partial Thrombo Time [COAG] AM 0400 Comment: Specimen: Send someone from the department to collect B-Type Natriuretic Peptide AM 0400 Comment: Specimen: Send someone from the department to collect C-Reactive Protein AM 0400 Comment: Specimen: Send someone from the department to collect Complete Blood Count w/o Diff [HEME] AM 0400 Specimen: Send someone from the department to collect Comment: Comprehensive Metabolic Panel AM 0400 Comment: Specimen: Send someone from the department to collect Hgb A1C AM 0400 Comment: Specimen: Send someone from the department to collect Lipid Panel AM 0400 Comment: Specimen: Send someone from the department to collect Magnesium AM 0400 Comment: Specimen: Send someone from the department to collect Phosphorous AM 0400 Comment: Specimen: Send someone from the department to collect Prothrombin Time INR [COAG] AM 0400 Comment: Specimen: Send someone from the department to collect Thyroid Stimulating Hormone AM 0400 Comment: Specimen: Send someone from the department to collect Urinalysis reflex Microscopic [URIN] AM 0400 Comment: Specimen: Send someone from the department to collect 10/16/16 04:30 Troponin I Q6H Comment: Specimen: Send someone from the department to collect 10/16/16 08:00 Carvedilol [Coreg] 12.5 mg PO BIDWM 10/16/16 09:00 Aspirin Enteric Coated [Aspirin EC] 81 mg PO DAILY Azithromycin [Zithromax] 500 mg D5% in Water [Dextrose 5%] 250 ml IVPB Q24H Cholecalciferol (D-3) [Vitamin D] 1,000 unit PO DAILY Furosemide [Lasix] 40 mg PO BID GuaiFENesin ER [Mucinex] 600 mg PO BID Lisinopril [Zestril] 5 mg PO DAILY Omeprazole [PriLOSEC] 40 mg PO DAILY PredniSONE 40 mg PO DAILY Spironolactone [Aldactone] 12.5 mg PO DAILY Thiamine (B-1) [Vitamin B-1] 100 mg PO DAILY How will this medication be supplied?: Pharmacy to Subsitute 10/16/16 10:30 Troponin I Q6H Comment: Specimen: Send someone from the department to collect 10/17/16 04:00 Activated Partial Thrombo Time [COAG] AM 0400 Specimen: Send someone from the department to collect Comment: Complete Blood Count w/o Diff [HEME] AM 0400 Specimen: Send someone from the department to collect Comment: Prothrombin Time INR [COAG] AM 0400 Specimen: Send someone from the department to collect Comment: 10/18/16 04:00 Activated Partial Thrombo Time [COAG] AM 0400 Specimen: Send someone from the department to collect Comment: Complete Blood Count w/o Diff [HEME] AM 0400 Specimen: Send someone from the department to collect Comment: Prothrombin Time INR [COAG] AM 0400 Specimen: Send someone from the department to collect Comment: 10/19/16 04:00 Activated Partial Thrombo Time [COAG] AM 0400 Specimen: Send someone from the department to collect Comment: Complete Blood Count w/o Diff [HEME] AM 0400 Specimen: Send someone from the department to collect Comment: Prothrombin Time INR [COAG] AM 0400 Specimen: Send someone from the department to collect Comment: 10/20/16 04:00 Activated Partial Thrombo Time [COAG] AM 0400 Specimen: Send someone from the department to collect Comment: Complete Blood Count w/o Diff [HEME] AM 0400 Specimen: Send someone from the department to collect Comment: Prothrombin Time INR [COAG] AM 0400 Specimen: Send someone from the department to collect Comment: Patient Problems (Last Updated 10/15/16 @ 22:52 by Franck Huggins MD) Community acquired pneumonia (Acute) Atrial fibrillation with RVR (Acute) Acute and chronic respiratory failure with hypoxia (Acute) Chronic respiratory failure with hypoxia (Acute) Dependence on continuous supplemental oxygen (Acute) Ischemic cardiomyopathy (Acute) Morbid obesity with BMI of 40.0-44.9, adult (Acute) S/P CABG x 4 (Acute) Vital Signs Temp Pulse Resp BP Pulse Ox 10/15/16 20:11 98.4 F 70 20 127/83 93 L 10/15/16 20:00 18 105/71 10/15/16 18:30 117 18 105/71 93 L 10/15/16 18:19 131 18 121/79 93 L 10/15/16 17:13 138 26 135/112 92 L 10/15/16 17:03 0 F L 84 20 133/69 84 L Laboratory Results 10/15/16 10/15/16 10/15/16 Range/Units 17:21 17:21 17:21 WBC 26.7 H (4.3-11.1) K/mcL RBC 5.18 (4.19-5.50) M/mcL Hgb 13.7 (12.9-16.9) g/dL Hct 43.7 (37.5-50.1) % MCV 84.4 (83.0-100.0) fL MCH 26.4 L (28.0-33.3) pg MCHC 31.4 L (31.6-35.5) g/dL RDW 15.6 H (11.5-14.5) % Plt Count 415 H (140-400) K/mcL MPV 10.0 (9.4-12.4) fL Seg Neutrophils % 92.0 % Band Neutrophils % 2.0 (0-4) % Lymphocytes % 6.0 % Neutrophils # 25.1 H (1.6-8.9) K/mcL Lymphocytes # 1.6 (0.6-4.6) K/mcL Platelet Estimate Increased H (Normal) Anisocytosis 1+ A (Not Present) Sodium 140 (136-145) mEq/L Potassium 4.4 (3.5-4.5) mEq/L Chloride 100 (98-109) mEq/L Carbon Dioxide 29 (19-29) mEq/L BUN 18 (8-26) mg/dL Creatinine 1.46 H (0.72-1.25) mg/dL Est GFR ( Amer) 58 L (> 60) Est GFR (Non-Af Amer) 48 L (> 60) BUN/Creatinine Ratio 12 (6-26) Glucose 143 H (70-99) mg/dL Calculated Osmolality 294 (280-300) Lactic Acid 2.1 (0.5-2.2) mmol/L Calcium 9.4 (8.6-10.8) mg/dL Troponin I (0-0.03) ng/mL B-Natriuretic Peptide (0-100) pg/mL 10/15/16 10/15/16 Range/Units 17:21 17:21 WBC (4.3-11.1) K/mcL RBC (4.19-5.50) M/mcL Hgb (12.9-16.9) g/dL Hct (37.5-50.1) % MCV (83.0-100.0) fL MCH (28.0-33.3) pg MCHC (31.6-35.5) g/dL RDW (11.5-14.5) % Plt Count (140-400) K/mcL MPV (9.4-12.4) fL Seg Neutrophils % % Band Neutrophils % (0-4) % Lymphocytes % % Neutrophils # (1.6-8.9) K/mcL Lymphocytes # (0.6-4.6) K/mcL Platelet Estimate (Normal) Anisocytosis (Not Present) Sodium (136-145) mEq/L Potassium (3.5-4.5) mEq/L Chloride (98-109) mEq/L Carbon Dioxide (19-29) mEq/L BUN (8-26) mg/dL Creatinine (0.72-1.25) mg/dL Est GFR ( Amer) (> 60) Est GFR (Non-Af Amer) (> 60) BUN/Creatinine Ratio (6-26) Glucose (70-99) mg/dL Calculated Osmolality (280-300) Lactic Acid (0.5-2.2) mmol/L Calcium (8.6-10.8) mg/dL Troponin I 0.01 (0-0.03) ng/mL B-Natriuretic Peptide 163 H (0-100) pg/mL Assessments/Treatments 12 lead ECG assessment Start: 10/15/16 17: 06 Freq: Status: Complete Document 10/15/16 17:13 TJS (Rec: 10/15/16 17:14 TJS [id number]) EKG Time EKG Completed 17:13 EKG performed by Danuta CASTAÑEDA EKG shown to and signed by Dr. Hernandez Cardiac monitoring Start: 10/15/16 17: 06 Freq: Status: Complete Document 10/15/16 17:13 TJS (Rec: 10/15/16 17:14 TJS [id number]) Cardiac Monitoring Heart Rate 136 Monitoring Method Bedside Rhythm Atrial Fibrillation ED Discharge Assessment Start: 10/15/16 17: 06 Freq: Status: Active Document 10/15/16 20:00 CRS (Rec: 10/15/16 20:19 CRS [id number]) ED Discharge Assessment ED Discharge Disposition Home ED Condition on Discharge Fair Med Rec/Patient Pharmacy Completed? No: Nurse aware Admitted to 2NE Bed assigned 28 Transported by auto emissions technician Transported with monitor oxygen IV Pain Scale 0 Pain Scale Used Standard (1-10) Blood Pressure 105/71 Heart rate 110 Respiratory Rate 18 Oxygen Delivery Nasal Cannula Oxygen Saturation 94 Critical Care Minutes 0 ED Shortness of Breath Assessment Start: 10/15/16 17: 06 Freq: Status: Complete Document 10/15/16 17:09 TJS (Rec: 10/15/16 17:13 TJS [id number]) Shortness of Breath Sepsis Infection Criteria Present suspected infection Sepsis SIRS Criteria RR > 20 rpm HR > 90 bpm Sepsis Organ Dysfunction Criteria none Present Sepsis Screen Sepsis Risk Sepsis Action Taken provider notified Sepsis Name of Provider Notified Corey Hernandez Symptoms/Complaint Shortness of Breath 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 Duration Intermittent Severity Moderate Context Unknown Known History Asthma Congestive Heart Failure Improves With Oxygen Rest Worsens With Exertion Movement Associated Symptoms Cough Treatment Prior to Arrival Oxygen Respiratory Depth Shallow Effort Labored Short of Breath Pattern Tachypnea Anterior Bilateral Throughout Breath Sounds Diminished Cough Description Involuntary Non-Productive Frequency Intermittent Bilateral Lower Extremity Edema Type Non-Pitting Edema Degree 1+ Level Of Consciousness Awake Alert Appropriate Follows Commands Patient Orientation Person Place Time Patient Behavior Appropriate Cooperative Ability to Follow Directions Excellent Impaired Cognition No Skin Temperature Warm Skin Moisture Dry Skin Turgor Normal Capillary Refill < 3 Seconds Initial Patient Assessment Start: 10/15/16 20: 11 Freq: .ONCE Status: Active Document 10/15/16 20:26 KDM (Rec: 10/15/16 20:35 KDM [id number]) General Questions Date of Arrival on Unit 10/15/16 Time of Arrival on Unit 20:15 Admitted From Emergency Dept Chief Complaint pnuemonia, afib RVR Onset of Chief Complaint 10/08/16 History Provided By Patient Family Member Orientation To Call Light Bed Phone TV Bathroom Smoking Policy Visiting Hours Procedures ID Bracelet On Emergency Contact Name Zandra Relationship to Patient Emergency Contact Phone Number [phone] Bands applied ID band Allergy band Patient Health Portal Patient was provided information on Yes accessing patient portal Patient Requests Portal Enrollment No Reason No Portal Enrollment Patient Declines Malnutrition Screening Tool (MST) Have You Recently Lost Weight Without No Trying Advance Directives Advance Directives No Advance Directives Information Provided Yes Advance Directives on File No Patient Rights Copy of Rights Given and Verbalizes Yes Understanding Tobacco Free Odon: Copy of AHS Yes Statement Given and Patient Verbalizes Understanding Communication Ability Primary Language German Preferred Language German Staff Nurse Required No Ability to Follow Directions Fair Able to Read Yes Able to Write Yes Communication Tools None Caregiver Communication Skills No Impairment Impairment Learning Preferences Demonstration Discussion Hearing Ability Normal Visual Assistive Devices Glasses Pain Assessment Do You Have Any Ongoing (Chronic) Pain No Problems Educated on Pain Scale Yes Past Medical History Medical history asthma atrial fibrillation CHF coronary artery disease CVA GERD hyperlipidemia hypertension kidney stones myocardial infarction other Male Surgical History coronary bypass (CABG) Psychiatric history depression Smoking Status Former smoker Smokeless Tobacco Status No Alcohol use none Drug use none Occupational status retired Current living situation Home With Family Activity level Independent ambulation Recent Out of Country Travel Within the No Last 8 Weeks Exposure or Possible Exposure to Illness No During Travel Family History-Meaningful Use Sister Ethnicity Non- Living Status Hx Family Cardiac Disorders Yes: Heart disease; [place] Brother Hx Family Cancer Yes: Lung and bone cancer Father Ethnicity Non- Living Status Hx Family Cancer Yes: Kidney cancer Mother Ethnicity Non- Living Status Hx Family Cancer Yes: Patient unable to recall. Spiritual Needs Spiritual Referral None Psychosocial Over Age 75 and Lives Alone or Over Age No 80 Potential Need for Follow-up Care (ECF, No Home Health, ECT) Developmentally Disabled or History of No Mental Health Problems Responsible for Care of Others No Financial Concerns Yes Suspected Abuse or Neglect No Suicidal or Homicidal Ideation No Social Service Consult Needed Yes Functional Assessment Employment Status Retired Community Services Used Prior to Oxygen Therapy Admission Eating (Feeding) Ability Independent Bathing Ability Standby Assistance Upper Body Dressing Ability Standby Assistance Lower Body Dressing Ability Standby Assistance Ambulation Ability 1 Person Assist Toileting Ability Standby Assistance Bladder Continent Bowel Continent Normal Bowel Pattern Daily Date of Last Known Bowel Movement 10/15/16 Intake and Output, Strict Start: 10/15/16 20: 11 Freq: Q8H Status: Active Document 10/15/16 20:11 WJS (Rec: 10/15/16 20:21 WJS [id number]) Intake and Output Intake, Oral Amount 0 Number of Voids 0 Measure weight Start: 10/15/16 20: 11 Freq: Status: Active Document 10/15/16 20:21 WJS (Rec: 10/15/16 20:22 WJS [id number]) Height and Weight Height 1.73 m Weight 111 kg Weight Measurement Method Built in [facility] Body Mass Index (BMI) 37.19 BMI Classification Obese Obesity Class II Patient Belongings Start: 10/15/16 20: 11 Freq: .ONCE Status: Active Document 10/15/16 20:26 KDM (Rec: 10/15/16 20:35 KDM [id number]) Patient Belongings Belongings With Patient on Admission Yes At Bedside Patient Belongings Dentures, Upper Dentures, Lower Glasses Pants Shoes Patient Rounding Start: 10/15/16 20: 11 Freq: Q1H Status: Active Document 10/15/16 20:11 WJS (Rec: 10/15/16 20:21 WJS [id number]) Hourly Rounding Hourly Rounding Checked for Patient Positioning Patient Personal Items Placed Within Reach Hourly Rounding Completed Yes Patient Awake Is family present? Yes Safety Call Light Within Reach Bed Position Low Fall Precautions Phone Within Reach Bed Brake On Side Rails Up X2 Are the Floors Free From Trip Hazards? Yes Is the Room Free From Clutter? Yes Document 10/15/16 20:59 KDM (Rec: 10/15/16 20:59 KDM [id number]) Hourly Rounding Hourly Rounding Checked for Patient Positioning Patient Personal Items Placed Within Reach Checked Patient Pain Level Hourly Rounding Completed Yes Patient Awake Is family present? Yes Equipment in Use Specialty Bed Safety Call Light Within Reach Bed Position Low Fall Precautions Phone Within Reach Bed Brake On Side Rails Up X2 Are the Floors Free From Trip Hazards? Yes Is the Room Free From Clutter? Yes Turn and Postion Bedrest No Turn Q 2HR No Patient Position Back Positioning Aides Pillows RT Continuous Pulse Oximetry Start: 10/15/16 17: 06 Freq: Status: Complete Document 10/15/16 17:09 TJS (Rec: 10/15/16 17:13 TJS [id number]) Saline lock insertion/management Start: 10/15/16 17: 06 Freq: Status: Complete Document 10/15/16 17:22 TJS (Rec: 10/15/16 17:23 TJS [id number]) IV Insertion/Site Assessment IV Attempt 1 Successful Successful Blood drawn and sent to Lab Yes Right Antecubital IV Established DRY PAN FEEDER No Date of Insertion 10/15/16 Time of Insertion 17:22 Reason for IV Insertion Provide Access for IV Medication(s) Gauge (gauge) 18 Site Observation Patent Dressing Applied Transparent Dressing Dry/Intact Patient Tolerance Tolerated Well Supplemental oxygen titration Start: 10/15/16 17: 06 Freq: Status: Complete Document 10/15/16 17:13 TJS (Rec: 10/15/16 17:14 TJS [id number]) Oxygen Adminstration Oxygen Saturation (95-100) 92 L Oxygen Delivery Method Nasal Cannula Flow Rate 3 Thrombosis Risk Factor Assessment Start: 10/15/16 20: 11 Freq: .ONCE Status: Active Document 10/15/16 20:26 KDM (Rec: 10/15/16 20:35 KDM [id number]) Thrombosis Risk Factor Assessment Each Factor Represents 1 point Swollen legs (current Obesity (BMI > 25) Acute myocardial infarction Serious lung disease including pneumonia (< 1 month) Other Risk Factors No Each Risk Factor Represents 2 Points Age 60 - 74 years Other congenital or acquired No thrombophilia - If yes, enter Type in comment Total Risk Factor Score 6 Risk Level Highest Risk Triage Start: 10/15/16 17: 03 Freq: Status: Complete Document 10/15/16 17:03 BDS (Rec: 10/15/16 17:06 BDS [id number]) Triage Chief Complaint triage ED Shortness of Breath/Dyspnea Patient Stated Complaint sob cough WILL 2 Onset (ago) day(s) General Appearance alert Work Related Injury? No Mode of arrival wheelchair Source patient family Limitations no limitations Ebola Risk: Travel/Contact With Anyone No From Affected Area/s Has Patient Experienced Ebola Symptoms No Temperature (97.6 F-99.6 F) 0 F L Pulse Rate 84 Respiratory Rate 20 Blood Pressure 133/69 O2 Sat by Pulse Oximetry (95-100) 84 L Oxygen Delivery Room Air Height 1.73 m Weight 109.769 kg Weight Measurement Method Stated by Patient Pain Scale 8 Pain Scale Used Standard (1-10) Medical history asthma atrial fibrillation CHF coronary artery disease CVA GERD hyperlipidemia hypertension kidney stones myocardial infarction other Additional surgical history PMH [place] in 1994 per Psychiatric history depression Smoking Status Former smoker Alcohol Use none Drug Use none Patient resides with/at Spouse Safety Concerns Feels Safe At This Time Do you currently feel hopless, have No thoughts of self harm, or thoughts of harming others History of fall in last 14 days? No Sister Family Member Ethnicity Non- Family Member Living Status Hx Family Cardiac Disorders Yes: Heart disease; [place] Brother Hx Family Cancer Yes: Lung and bone cancer Father Family Member Ethnicity Non- Family Member Living Status Hx Family Cancer Yes: Kidney cancer Mother Family Member Ethnicity Non- Family Member Living Status Hx Family Cancer Yes: Patient unable to recall. Vital Signs Assessment Start: 10/15/16 17: 06 Freq: Status: Active Document 10/15/16 17:13 TJ (Rec[facility]15[id number] Vital Signs Pain Reported No Pain Reported Blood Pressure 135/112 Blood Pressure Location Left Arm Source Automatic Cuff Position HOB Elevated Pulse Rate 138 Rhythm Irregular Strength Normal Method Auscultation Respiratory Rate 26 Effort Labored Short of Breath Pattern Tachypnea Pulse Oximetry (95-100) 92 L Oxygen Delivery Nasal Cannula Oxygen Flow Rate (LPM) 3 Vital Signs Assessment Start: 10/15/16 17: 11 Freq: PROTOCOL Status: Active Document 10/15/16 18:19 TJS (Rec: 10/15/16 18:20 [facility] [id number]) ED Vital Signs Pain Reported No Pain Reported Blood Pressure 121/79 Blood Pressure Location Left Arm Source Automatic Cuff Position HOB Elevated Pulse Rate 131 Respiratory Rate 18 Depth Normal Effort Normal for Patient Spontaneous Non-Labored Pulse Oximetry (95-100) 93 L Oxygen Delivery Nasal Cannula Oxygen Flow Rate (LPM) 4 Document 10/15/16 18:30 TJS (Rec: 10/15/16 18:30 [facility] [id number]) ED Vital Signs Pain Reported No Pain Reported Blood Pressure 105/71 Blood Pressure Location Left Arm Source Automatic Cuff Position HOB Elevated Pulse Rate 117 Respiratory Rate 18 Depth Normal Effort Normal for Patient Spontaneous Non-Labored Pattern Regular Pulse Oximetry (95-100) 93 L Oxygen Delivery Nasal Cannula Oxygen Flow Rate (LPM) 4 Vital Signs Assessment Start: 10/15/16 20: 11 Freq: Q4H Status: Active Document 10/15/16 20:11 WJS (Rec: 10/15/16 20:21 WJS [id number]) Vital Signs with MEWS Temperature (97.6 F-99.6 F) 98.4 F Temperature Source Oral Pulse Rate 70 Respiratory Rate 20 Pulse Oximetry (95-100) 93 L Oxygen Delivery Nasal Cannula Oxygen Flow Rate (LPM) 4 Blood Pressure 127/83 Blood Pressure Location Left Arm Source Automatic Cuff Position HOB Elevated Discharge Information ED Provider: Corey Hernandez Status: Departed Time Seen by Provider: 10/15/16 17:11 Condition: Fair Triaged At: 10/15/16 17:03 Other ED Providers: Mahsa Rust,Odell Emanuel,Luan Schaffer,Cj Zambrano,Shiloh Arias,Sundeep Katz,Joaquín Lau,Damon Rios M.D.,Garland Llanos,Jojo Llanos,Sundeep Jimenez,Ulices Zamudio,Rene Vora,Micha Ly,Bri Belle,Saravanan Lopez,Garland Ireland,Kristian Sebastian,Monica Cisneros,Andrea Parish,[place] Emergency Discharge Date/Time: 10/15/16 20:00 Emergency Discharge Disposition: Admitted As Inpatient Clinical Impression Community acquired pneumonia Atrial fibrillation with RVR Emergency Discharge Comment: Admit Intervention Last Done ED Shortness of Breath Assessment 10/15/16 17:09 Query Result Sepsis Infection Criteria Present suspected infection Sepsis SIRS Criteria RR > 20 rpm HR > 90 bpm Sepsis Organ Dysfunction Criteria none Present Sepsis Screen Sepsis Risk Sepsis Action Taken provider notified Sepsis Name of Provider Notified Corey Hernandez Shortness Of Breath Symptoms/Complaint Shortness of Breath Cough 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 Shortness Of Breath Duration Intermittent Shortness Of Breath Severity Moderate Shortness Of Breath Context Unknown Shortness Of Breath Known History Asthma Congestive Heart Failure Shortness Of Breath Improves With Oxygen Rest Shortness Of Breath Worsens With Exertion Movement Shortness Of Breath Associated Symptoms Cough Shortness Of Breath Treatments Prior to Oxygen Arrival Respiratory Depth Shallow Respiratory Effort Labored Short of Breath Respiratory Pattern Tachypnea Anterior Bilateral Throughout -Breath Sounds Diminished Cough Description Involuntary Non-Productive Cough Frequency Intermittent Bilateral Lower Extremity -Edema Type Non-Pitting -Edema Degree 1+ Level Of Consciousness Awake Alert Appropriate Follows Commands Patient Orientation Person Place Time Patient Behavior Appropriate Cooperative Ability to Follow Directions Excellent Impaired Cognition No Skin Temperature Warm Skin Moisture Dry Skin Turgor Normal Capillary Refill < 3 Seconds ED Discharge Assessment 10/15/16 20:00 Query Result ED Discharge Disposition Home ED Condition on Discharge Fair Med Rec/Patient Phamracy completed? No: Nurse aware ED Admit to 2NE Bed assigned 28 Transported by auto emissions technician Transported with monitor oxygen IV Severity scale (1-10) 0 Pain Scale Used Standard (1-10) Blood Pressure 105/71 Heart rate 110 Respiratory Rate 18 Oxygen Delivery Nasal Cannula Pulse Oximetry Reading 94 Critical Care Minutes 0 Observation Discharge Date/Time: Observation Discharge Disposition: Observation Discharge Comment: Instructions: Stand-Alone Forms: Prescriptions: Visit Report - Forms: - Referrals: Radiology Results Chest X-Ray 10/15/16 17:11 IMPRESSION: Suspect patchy airspace disease in the right lung base. D/ / Narayan Swartz MD / Narayan Swartz MD Interpreting Provider: Narayan Swartz MD
[2016-10-15 23:15] LABS: VBG HCO3 35.5 mEq/L (21-27); VBG PH 7.38 pH Units (7.32-7.42)
[2016-10-15] MEDS: Ipratropium/Albuterol Neb 3 ML IH SCH (23:28)
[2016-10-15] MEDS: 0.9 % Sodium Chloride 1,000 ML IVC SCH (23:37)
[2016-10-16 01:02] LABS: Basophils # 0.1 K/mcL (0.0-0.2); Basophils % 0.5 %; Eosinophils # 0.1 K/mcL (0.0-0.6); Eosinophils % 0.8 %; Hematocrit 41.2 % (37.5-50.1); Immature Granulocytes % 0.4 % (0-4); Mean Corpuscular HGB Conc 31.6 g/dL (31.6-35.5); Mean Corpuscular Hemoglobin 26.7 pg (28.0-33.3); Mean Corpuscular Volume 84.6 fL (83.0-100.0); Mean Platelet Volume 10.1 fL (9.4-12.4); Monocytes # 1.2 K/mcL (0.0-1.3); Monocytes % 6.6 %; Neutrophils # 14.6 K/mcL (1.6-8.9); Platelet Count 372 K/mcL (140-400); Red Blood Count 4.87 M/mcL (4.19-5.50); Red Cell Distribution Width 15.6 % (11.5-14.5); Segmented Neutrophils % 80.7 %
[2016-10-16 01:07] LABS: INR 1.4; Prothrombin Time 15.4 Seconds (9.4-12.1)
[2016-10-16 01:16] LABS: Albumin 2.9 g/dL (3.5-5.0); Albumin/Globulin Ratio 0.5 (1.1-2.2); Bilirubin,Total 1.2 mg/dL (0.2-1.2); Calcium 9.2 mg/dL (8.6-10.8); Chol/HDL Ratio 3.8 (0-4.9); Globulin 5.3 g/dL (2.4-3.5); Magnesium 1.5 mg/dL (1.6-2.6); Phosphorous 4.1 mg/dL (2.3-4.7); Potassium 4.2 mEq/L (3.5-4.5); Total Protein 8.2 g/dL (6.0-8.3)
[2016-10-16 01:37] LABS: Thyroid Stimulating Hormone 1.288 mcIU/mL (0.350-4.840)
[2016-10-16 01:40] LABS: Hemoglobin A1C 5.9 %
[2016-10-16] MEDS: Heparin 25,000 UNIT/500 ML D5W 25,000 UNIT/500 ML MLS IVC SCH ×2 (01:52→17:51)
[2016-10-16] MEDS: Ipratropium/Albuterol Neb 3 ML IH SCH ×4 (03:24→23:25)
[2016-10-16 03:26] LABS: Adenovirus Not Detected (Not Detect); Bordetella Pertussis Not Detected (Not Detect); Chlamydophila pneumoniae Not Detected (Not Detect); Coronavirus 229E Not Detected (Not Detect); Coronavirus HKU1 Not Detected (Not Detect); Coronavirus NL63 Not Detected (Not Detect); Coronavirus OC43 Not Detected (Not Detect); Human Metapneumovirus Not Detected (Not Detect); Human Rhinovirus/Enterovirus Not Detected (Not Detect); Influenza A Subtype 2009 H1 Not Detected (Not Detect); Influenza A Untypeable Not Detected (Not Detect); Influenza B Not Detected (Not Detect); Mycoplasma pneumoniae Not Detected (Not Detect); Parainfluenza Virus 1 Not Detected (Not Detect); Parainfluenza Virus 2 Not Detected (Not Detect); Parainfluenza Virus 3 Not Detected (Not Detect); Parainfluenza Virus 4 Not Detected (Not Detect); Respiratory Syncytial Virus Not Detected (Not Detect)
[2016-10-16] MEDS ORDERED: Magnesium Sulfate 2 GM in D5% in Water 100 ML IVPB ONE (03:44)
[2016-10-16] MEDS: Doxycycline 100 MG in 0.9 % Sodium Chloride Mini Bag 100 ML IVPB SCH ×2 (06:14→17:40)
[2016-10-16] MEDS: Aspirin Enteric Coated 81 MG Tablet PO SCH (08:18)
[2016-10-16] MEDS: Thiamine (B-1) 100 MG TABLET PO SCH (08:18)
[2016-10-16] MEDS: Cholecalciferol (D-3) 1,000 UNIT TABLET PO SCH (08:18)
[2016-10-16] MEDS ORDERED: predniSONE 20 MG TABLET PO SCH (09:00)
[2016-10-16] MEDS ORDERED: Furosemide 40 MG TABLET PO SCH (09:00)
[2016-10-16] MEDS ORDERED: Spironolactone 25 MG TABLET PO SCH (09:00)
[2016-10-16] MEDS ORDERED: Azithromycin 500 MG in D5% in Water 250 ML IVPB SCH (09:00)
[2016-10-16] MEDS ORDERED: Perflutren Lipid Microsphere 1.3 ML in 0.9 % Sodium Chloride 8.7 ML IVP ONE (09:03)
[2016-10-16] MEDS ORDERED: Perflutren Lipid Microsphere 2 ML VIAL ONE (09:06)
--- NOTE | 2016-10-16 10:51 | Cardiology Consult Note ---
Date of Encounter: 10/16/16 Time of Encounter: 10:46 Assessment and Plan (1) Atrial fibrillation Current Visit: No Status: Chronic Appears to be persisent/ permanent. Recommend rate control and anticoagulation. Will increase BBlocker. He has refused Xarelto in the pat due to cost but will consider coumadin. Qualifiers: Atrial fibrillation type: persistent Qualified Code(s): I48.1 - Persistent atrial fibrillation (2) Congestive heart failure Current Visit: No Status: Acute Seems stable, EF most recently 40%. Qualifiers: Congestive heart failure type: combined Congestive heart failure chronicity : acute on chronic Qualified Code(s): I50.43 - Acute on chronic combined systolic (congestive) and diastolic (congestive) heart failure (3) Coronary artery disease Current Visit: Yes Status: Chronic Last cath 05/15 showed severe three vessel, no intervention perfomed. Qualifiers: Coronary Disease-Associated Artery/Lesion type: elem artery [place] vs. transplanted heart: elem heart Associated angina: angina presence unspecified Qualified Code(s): I25.10 - Atherosclerotic heart disease of elem coronary artery without angina pectoris (4) Nonsustained ventricular tachycardia Current Visit: Yes Status: Acute Noted during hospitalization in Apr., none noted during this stay. Discussion w patient/family: The assessment and plan as outlined above was discussed with the patient and/or family members who expressed understanding and agreement. All questions were answered. Thank you for involving us in the care of your patient. Please call with any questions. History of Present Illness Consult date: 10/16/16 Requesting physician: Candice Ken Consult reason: AF Chief complaint: "I have pneumonia" History of present illness: Mr. Felix is a 71 year old male with a history of severe CAD, CM, AF presents with SOB and possible pneumonia. He has a history of AF but does not know if it is paroxsysmal or persistent. He thinks, however he has been in AF for quite some time. Review of available EKGs revealed all show AF since at least April. Past Med Surg Social Fam HX - Past Medical History Medical history: asthma, atrial fibrillation, CHF, coronary artery disease, CVA , GERD, hyperlipidemia, hypertension, kidney stones, myocardial infarction, other Psychiatric history: depression - Past Surgical History Surgical History: coronary bypass (CABG) - Social History Smoking Status: Former smoker Smokeless Tobacco Status: No Alcohol use: none Drug use: none - Family History Mother Family Member Ethnicity: Non- Living Status: Hx Family Cancer: Yes (Patient unable to recall.) Father Family Member Ethnicity: Non- Living Status: Hx Family Cancer: Yes (Kidney cancer) Brother Hx Family Cancer: Yes (Lung and bone cancer) Sister Family Member Ethnicity: Non- Living Status: Hx Family Cardiac Disorders: Yes (Heart disease; AR) Medications and Allergies Cholecalciferol (D-3) [Vitamin D] 1,000 unit PO DAILY 05/24/16 [History] LORazepam [Ativan] 1 mg PO TID PRN 05/24/16 [History] Omeprazole [PriLOSEC] 40 mg PO DAILY 05/24/16 [History] Pyridoxine HCl [Vitamin B-6] 100 mg PO DAILY MDD 100mg 05/24/16 [History] Aspirin Enteric Coated [Aspirin EC] 81 mg PO DAILY 09/12/16 [History] Atorvastatin [Lipitor] 80 mg PO HS 09/12/16 [History] Carvedilol [Coreg] 12.5 mg PO BIDWM 09/12/16 [History] Ciprofloxacin HCl [Cipro] 500 mg PO BID #20 tablet 09/12/16 [Rx] Cyproheptadine HCl 4 mg PO TID 09/12/16 [History] Digoxin [Lanoxin] 0.25 mg PO DAILY 09/12/16 [History] Fluticasone Propionate Nasal [Flonase] 50 mcg NS BID 09/12/16 [History] Furosemide [Lasix] 40 mg PO BID 09/12/16 [History] Lisinopril [Zestril] 5 mg PO DAILY 09/12/16 [History] Metoclopramide HCl 5 mg PO BID PRN 09/12/16 [History] Oxygen 2 l IN AD 09/12/16 [History] Spironolactone [Aldactone] 12.5 mg PO DAILY MDD 12.5mg 09/12/16 [History] Allergies Penicillins Adverse Reaction (Verified 05/24/16 13:13) Nausea All Systems Review: A 10-system review of systems was performed and is negative for pertinent findings except as documented above in the HPI. Physical Examination Vital Signs, Last 4 Hours Temp Pulse Resp BP Pulse Ox 10/16/16 10:00 92 128/83 10/16/16 09:00 94 126/74 10/16/16 08:15 104 145/85 93 L 10/16/16 07:43 97.8 F 86 28 135/84 92 L General: Conversant, No Apparent Distress HEENT: Atraumatic, Normocephaly, Mucus Membranes Moist Neck: No JVD, Normal carotid pulses Cardiac: Other (Irregular) Lungs: Other (scattered ronchi. ) Neuro: Alert and responsive, No focal deficits noted Abdomen: Soft, Non-Tender Musculoskeletal: No Chest Wall Tenderness Results 10/16/16 00:47 10/16/16 00:47 Lab Results 10/15/16 10/15/16 10/16/16 22:36 22:36 00:47 WBC Hgb Hct Plt Count INR APTT Sodium 141 Potassium 4.2 Chloride 100 Carbon Dioxide 30 H BUN 21 Creatinine 1.60 H Glucose 119 H Calcium 9.2 Magnesium 1.6 1.5 L Total Bilirubin 1.2 AST 14 ALT 11 Alkaline Phosphatase 78 Troponin I 0.01 B-Natriuretic Peptide TSH 10/16/16 10/16/16 10/16/16 00:47 00:47 00:47 WBC Hgb Hct Plt Count INR APTT 30.4 Sodium Potassium Chloride Carbon Dioxide BUN Creatinine Glucose Calcium Magnesium Total Bilirubin AST ALT Alkaline Phosphatase Troponin I B-Natriuretic Peptide 141 H TSH 1.288 10/16/16 10/16/16 10/16/16 00:47 00:47 06:49 WBC 18.1 H Hgb 13.0 Hct 41.2 Plt Count 372 INR 1.4 APTT Sodium Potassium Chloride Carbon Dioxide BUN Creatinine Glucose Calcium Magnesium Total Bilirubin AST ALT Alkaline Phosphatase Troponin I 0.00 B-Natriuretic Peptide TSH 10/16/16 10/16/16 09:30 09:30 WBC Hgb Hct Plt Count INR APTT 93.9 H D Sodium Potassium Chloride Carbon Dioxide BUN Creatinine Glucose Calcium Magnesium 2.4 Total Bilirubin AST ALT Alkaline Phosphatase Troponin I B-Natriuretic Peptide TSH Consult Discharge Plan - Plan Referrals: Hiren Adame Jr, MD [Primary Care Provider] -
--- NOTE | 2016-10-16 10:53 | Internal Med Progress Note ---
Date of Encounter: 10/16/16 Time of Encounter: 10:30 - Assessment and plan (1) Atrial fibrillation with RVR Current Visit: Yes Status: Acute Assessment and plan: likely related to dehydration and underlying infection. Has been on Amiodarone drip due to borderline tenuous BP; plan to increase Coreg to 25mg twice daily and wean off Amiodarone drip. Continue gentle IV hydration. F/up Echocardiogram. Cardiology consult appreciated; continue IV Heparin drip for now and plan to start Coumadin; patient was planned on Xarelto in the past but insurance does not cover this. (2) Community acquired pneumonia Current Visit: Yes Status: Acute Assessment and plan: continue IV hydration and antibiotics- Doxycycline and Rocephin; f/up blood cultures. Hold steroids. patient feels better today; improving leukocytosis and O2 requirements; (3) Acute and chronic respiratory failure with hypoxia Current Visit: Yes Status: Acute Assessment and plan: due to Pneumonia and RVR; (4) TRU (acute kidney injury) Current Visit: Yes Status: Acute Assessment and plan: continue IV hydration; likely related to infection; hold Lasix and Spironolactone for now; (5) Coronary artery disease Current Visit: Yes Status: Chronic Qualifiers: Coronary Disease-Associated Artery/Lesion type: bypass graft [place] vs. transplanted heart: [place] heart Associated angina: angina presence unspecified Qualified Code(s): I25.810 - Atherosclerosis of coronary artery bypass graft(s) without angina pectoris (6) Essential hypertension Current Visit: Yes Status: Chronic (7) Chronic respiratory failure with hypoxia Current Visit: Yes Status: Chronic (8) Ischemic cardiomyopathy Current Visit: Yes Status: Chronic - Subjective Interval history: Reports feeling well today. Improved cough and chest pain but still has some shortness of breath. Continues to require 5 L/m supplemental oxygen, he does use 2 L/m at home. - Constitutional Vitals: Temp Pulse Resp BP Pulse Ox 97.8 F 92 28 128/83 93 L 10/16/16 07:43 10/16/16 10:00 10/16/16 07:43 10/16/16 10:00 10/16/16 08:15 General appearance: Present: A&O X 3, obese, answers questions appropriately - Respiratory Respiratory exam: Present: rales (Bibasal crackles, right more than left. No wheezing.). Absent: accessory muscle use, rhonchi, wheezes - Cardiovascular Cardiovascular exam: Present: irregular rhythm, +S1, +S2. Absent: diastolic murmur, gallop, rubs, systolic murmur - GI/Abdominal GI/Abdominal exam: Present: normal bowel sounds, soft (Obese and nontender), no peritoneal signs. Absent: distended, tenderness - Extremities Exam Extremities exam: Present: full ROM, pedal edema (1+ pedal edema), warm, radial pulses palpable and symetrical. Absent: calf tenderness, cyanotic - Skin Skin exam: Present: dry, intact Internal Medicine: Result - Labs CBC & Chem 7: 10/16/16 00:47 10/16/16 00:47 Labs: Short CBC 10/16/16 Range/Units 00:47 WBC 18.1 H (4.3-11.1) K/mcL Hgb 13.0 (12.9-16.9) g/dL Hct 41.2 (37.5-50.1) % Plt Count 372 (140-400) K/mcL Neutrophils # 14.6 H (1.6-8.9) K/mcL BMP 10/16/16 00:47 Sodium 141 Potassium 4.2 Chloride 100 Carbon Dioxide 30 H BUN 21 Creatinine 1.60 H Glucose 119 H Calcium 9.2 Cardiac Enzymes 10/15/16 10/16/16 Range/Units 22:36 06:49 Troponin I 0.01 0.00 (0-0.03) ng/mL Liver Function 10/16/16 Range/Units 00:47 Total Bilirubin 1.2 (0.2-1.2) mg/dL AST 14 (5-34) Units/L ALT 11 (0-55) Units/L Alkaline Phosphatase 78 (38-126) Units/L Albumin 2.9 L (3.5-5.0) g/dL - ABG Interpretation ABG results: PT/INR, D-dimer PT 15.4 Seconds (9.4-12.1) H 10/16/16 00:47 - Impressions Impressions Chest CT 10/16/16 22:22 IMPRESSION: 1. Interval development of patchy ground-glass abnormality and interstitial septal thickening more pronounced in the lower lobes. Differential considerations include NSIP, UIP or hypersensitivity pneumonitis. 2. Several ground-glass and solid appearing nodules as described above most notably in the left upper lobe which could be inflammatory or represent an atypical infectious process. A follow up exam in 2 months is suggested for further evaluation. D/ / 10/16/2016 08:00:13 Caio Culp MD / arvind Interpreting Provider: Caio Culp MD Consult Discharge Plan - Plan Referrals: Hiren Adame Jr, MD [Primary Care Provider] -
--- NOTE | 2016-10-16 12:07 | ECHO - Doppler Report ---
Echo with Imaging Enhancement Agent Name: Franco Felix Date of Study: 10/16/2016 Date: 1945 Ht: 68.0 in Medical Record#: [id number] Age: 71 Wt: 245.0 lb Gender: Male BSA: 2.23 Order #: [id number] Location: [facility] Room #: 2n14 Reading Physician: Taylor Parish DO Infertility Medical Assistant: Ruben Mchugh RDCS Ordering Physician: Franck Huggins MD Primary Physician: None Indications: Atrial Fibrillation Impressions: LVEF 40%. Global LV systolic dysfunction with regional variations. Atypical septal motion. Indeterminate left venticular diastolic function RV is not well evaluated. Mild-moderate tricuspid regurgitation. Mild pulmonic regurgitation. Probable mild pulmonary hypertension by TR gradient. IVC is not well visualized. Left Ventricular Wall Motion: Rest Echo Findings The apex, apical inferior, mid inferior, basal inferior, apical anterior, mid anterior, basal anterior, apical septal, mid inferior septal, basal inferior septal, apical lateral, mid anterior lateral, basal anterior lateral, mid inferior lateral, basal anterior septal and basal inferior lateral erickson were hypokinetic. The mid anterior septal wall was akinetic. Findings: Study Quality * Technically adequate exam. ECG Findings * Atrial fibrillation. Left Ventricle * Indeterminate diastolic function. * Definity echo contrast was used. * Atypical septal motion consistent with post-operative status. * LVEF 40%. Mitral Valve * Normal mitral valve structure. * No mitral stenosis. * Trace mitral regurgitation. Aortic Valve * No aortic regurgitation. * Trileaflet aortic valve. * Normal aortic valve structure. * No aortic stenosis. Tricuspid Valve * Normal tricuspid valve structure. * Mild-moderate tricuspid regurgitation. Pulmonic Valve * Pulmonic valve is not well visualized. * No pulmonic stenosis. * Mild pulmonic regurgitation. Pulmonary Artery * Pulmonary artery not well visualized. Left Atrium * Severely dilated left atrium. Right Atrium * Mild to moderately dilated right atrium. Right Ventricle * RV is not well evaluated. Interatrial Septum * Interatrial septum not well evaluated. Pericardium * There is no pericardial effusion present. IVC * The IVC is not well evaluated. Aorta * Normally sized aortic root. History Hypertension Diabetes Hypercholesteremia Family History of CAD History of CAD/PTCA Myocardial Infarction Coronary Artery Bypass Graft 07/14/16 a Previous Echo was performed. Contrast: Definity 1.3 ml in 8.7 ml of saline 2 ml. Measurements: BP: 122/ 88 2D Normal Values IVSd: 1.30 cm 0.6 - 1.0 cm LVIDd: 4.80 cm 3.7 - 5.6 cm LVPWd: .80 cm 0.6 - 1.1 cm LVIDs: 4.30 cm 1.5 - 3.6 cm AO: 3.00 cm < 4.0 cm LA: 4.70 cm 2.0 - 4.0cm %FS: 10.40 cm >25 % LA volume: 143 Mitral Valve Peak E:.80 m/sec Peak E' Lat Armando:12.8 cm/s Peak E' Med Armando:8.38 cm/s E/E' Lat Ratio:6.3 E/E' Med Ratio:9.5 Tricuspid Valve TV Regurg Peak Grad: 34.00mmHg TV Regurg Peak Armando: 2.93m/sec Updated by Taylor Parish on 10/16/2016 12:00:43 PM electronically signed on 10/16/2016 12:04:01 PM with status of Final Wall Motion Yeh: 1=Normal, 2=Hypokinesis, 3=Akinesis, 4=Dyskinesis, 5=Aneurysmal, 6=Hyperkinetic, X=Not Visualized (Blank)=Missing
--- NOTE | 2016-10-16 13:03 | Electrocardiograph Report ---
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
[2016-10-16] MEDS: *HR* LORazepam 1 MG TABLET PO PRN ×2 (16:46→21:44)
[2016-10-16] MEDS: *HR* Warfarin 5 MG TABLET PO SCH (18:17)
[2016-10-17 03:34] LABS: Basophils % 0.1 %; Hematocrit 34.8 % (37.5-50.1); Immature Granulocytes % 0.7 % (0-4); Lymphocytes # 1.4 K/mcL (0.6-4.6); Lymphocytes % 5.8 %; Mean Corpuscular HGB Conc 31.9 g/dL (31.6-35.5); Mean Corpuscular Hemoglobin 26.7 pg (28.0-33.3); Mean Corpuscular Volume 83.9 fL (83.0-100.0); Mean Platelet Volume 10.3 fL (9.4-12.4); Monocytes # 1.9 K/mcL (0.0-1.3); Monocytes % 7.7 %; Neutrophils # 20.9 K/mcL (1.6-8.9); Platelet Count 307 K/mcL (140-400); Red Blood Count 4.15 M/mcL (4.19-5.50); Red Cell Distribution Width 15.7 % (11.5-14.5); Segmented Neutrophils % 85.7 %
[2016-10-17 03:41] LABS: Hemoglobin 11.1 g/dL (12.9-16.9); INR 1.3; Prothrombin Time 14.3 Seconds (9.4-12.1)
[2016-10-17 03:44] LABS: Activated Partial Thrombo Time 86.5 Seconds (26.0-36.0)
[2016-10-17 03:47] LABS: Calcium 8.3 mg/dL (8.6-10.8)
[2016-10-17] MEDS: Ipratropium/Albuterol Neb 3 ML IH SCH ×4 (04:31→23:48)
[2016-10-17] MEDS: Doxycycline 100 MG in 0.9 % Sodium Chloride Mini Bag 100 ML IVPB SCH ×2 (06:36→18:06)
[2016-10-17] MEDS: 0.9 % Sodium Chloride 1,000 ML IVC SCH (06:36)
[2016-10-17] MEDS: Thiamine (B-1) 100 MG TABLET PO SCH (07:38)
[2016-10-17] MEDS: Cholecalciferol (D-3) 1,000 UNIT TABLET PO SCH (07:39)
[2016-10-17] MEDS: Aspirin Enteric Coated 81 MG Tablet PO SCH (07:39)
--- NOTE | 2016-10-17 08:33 | Cardiology Progress Note ---
Date of Encounter: 10/17/16 Time of Encounter: 08:30 Assessment and Plan (1) Acute and chronic respiratory failure with hypoxia Current Visit: Yes Status: Acute Per Cardiology: Management per primary service. Appears clinically improved. (2) Community acquired pneumonia Current Visit: Yes Status: Acute Per Cardiology: CXR IMPRESSION: Suspect patchy airspace disease in the right lung base. CT IMPRESSION: 1. Interval development of patchy ground-glass abnormality and interstitial septal thickening more pronounced in the lower lobes. Differential considerations include NSIP, UIP or hypersensitivity pneumonitis. 2. Several ground-glass and solid appearing nodules as described above most notably in the left upper lobe which could be inflammatory or represent an atypical infectious process. A follow up exam in 2 months is suggested for further evaluation. Management per primary service. On antibiotics. Appears to be improving. (3) Atrial fibrillation with RVR Current Visit: Yes Status: Acute Per Cardiology: Remains A. fib with average heart rate 92 the past 12 hours. Currently A. fib in the 80s on telemetry. Off IV amiodarone drip. On Coreg 25mg PO BID. Regarding long-term AC, was supposed to be on Xarelto as outpatient, however was not taking d/t cost issues. Now on IV Hep gtt and Coumadin. Current INR = 1.3. Target INR 2.0 - 3.0. Discussed with Dr. Rhoades, no need for IV Hep. bridging. Cardiology will s/o off, re-consult PRN, follow up scheduled. (4) Ischemic cardiomyopathy Current Visit: Yes Status: Chronic Per Cardiology: Hx of ICMP. EF on echo 40% with mild to moderate TR, mild CO. Euvolemic on exam. Has mild TRU-- Lasix currently off. On BB and ACEI. On IVF-- monitor closely. (5) TRU (acute kidney injury) Current Visit: Yes Status: Acute Per Cardiology: Has mild TRU. Lasix off. Consider holding ACEI. Consider Nephrology C/S if deemed appropriate. (6) Coronary artery disease Current Visit: Yes Status: Chronic Per Cardiology: Last [facility] 04/2016 showed severe three-vessel disease with patent ARNOLD to mid LAD , occluded SVG to right PDA with collaterals, occluded SVG to diagonal 1, and occluded SVG to OM1. Chest pain-free. Troponin is negative 4. On aspirin, statin, beta natalya, and ROSALBA inhibitor. Qualifiers: Coronary Disease-Associated Artery/Lesion type: bypass graft [place] vs. transplanted heart: [place] heart Associated angina: angina presence unspecified Qualified Code(s): I25.810 - Atherosclerosis of coronary artery bypass graft(s) without angina pectoris Discussion w patient/family: The assessment and plan as outlined above was discussed with the patient who expressed understanding and agreement. All questions were answered. Thank you for involving us in the care of your patient. Please call with any questions. Subjective Principal diagnosis: Pneumonia, Afib RVR Interval history: Patient somewhat somnolent. Denies any CP, SOB, Palpitations. Denies any active bleeding or blood loss. Objective Vital Signs, Last 4 Hours Temp Pulse Resp BP Pulse Ox 10/17/16 07:43 80 10/17/16 06:52 98.7 F 84 19 126/65 92 L General: Conversant, No Apparent Distress HEENT: Atraumatic, Normocephaly Cardiac: No Murmur, Other (Irregularly irregular) Lungs: Normal Breath Sounds, No Wheeze, Rales, Rhonchi, Other Neuro: Alert and responsive, No focal deficits noted Skin: No rashes noted on visualized skin Extremities: No Edema Results 10/17/16 03:16 10/17/16 03:16 Lab Results Laboratory Tests 10/15/16 10/15/16 10/15/16 17:21 17:21 22:36 Hgb 13.7 Hct 43.7 INR Creatinine Est GFR (Non-Af Amer) Troponin I 0.01 0.01 B-Natriuretic Peptide Albumin TSH 10/16/16 10/16/16 10/16/16 00:47 00:47 00:47 Hgb Hct INR Creatinine Est GFR (Non-Af Amer) Troponin I B-Natriuretic Peptide 141 H Albumin 2.9 L TSH 1.288 10/16/16 10/16/16 10/17/16 06:49 13:34 03:16 Hgb Hct INR 1.3 Creatinine Est GFR (Non-Af Amer) Troponin I 0.00 0.01 B-Natriuretic Peptide Albumin TSH 10/17/16 10/17/16 03:16 03:16 Hgb 11.1 L D Hct 34.8 L INR Creatinine 1.56 H Est GFR (Non-Af Amer) 44 L Troponin I B-Natriuretic Peptide Albumin TSH ITS Impressions Chest X-Ray 10/15/16 17:11 IMPRESSION: Suspect patchy airspace disease in the right lung base. D/ / Narayan Swartz MD / Narayan Swartz MD Interpreting Provider: Narayan Swartz MD Chest CT 10/16/16 22:22 IMPRESSION: 1. Interval development of patchy ground-glass abnormality and interstitial septal thickening more pronounced in the lower lobes. Differential considerations include NSIP, UIP or hypersensitivity pneumonitis. 2. Several ground-glass and solid appearing nodules as described above most notably in the left upper lobe which could be inflammatory or represent an atypical infectious process. A follow up exam in 2 months is suggested for further evaluation. D/ / 10/16/2016 08:00:13 Caio Culp MD / arvind Interpreting Provider: Caio Culp MD Intake & Output 10/14/16 10/15/16 10/16/16 10/17/16 23:59 23:59 23:59 23:59 Intake Total 150 / 150 3520 / 3520 700 / 700 Output Total 350 / 350 400 / 400 Balance 150 / 150 3170 / 3170 300 / 300 Weight 111 kg 111.5 kg 112.3 kg Active Medications Acetaminophen (Tylenol) 650 mg PO Q6HR PRN PRN Reason: Mild Pain (1-3) Stop: 04/16/17 22:12 Albuterol Sulfate (Proventil Neb) 2.5 mg IH Q2H PRN PRN Reason: Shortness Of Breath/Wheezing Stop: 04/16/17 22:25 Albuterol/Ipratropium (Duoneb) 3 ml IH QIDR RUSTAM Stop: 04/16/17 23:01 Last Admin: 10/17/16 04:31 Dose: 3 ml Aspirin (Aspirin Ec) 81 mg PO DAILY RUSTAM Stop: 04/17/17 09:01 Last Admin: 10/17/16 07:39 Dose: 81 mg Atorvastatin Calcium (Lipitor) 80 mg PO HS RUSTAM Stop: 04/16/17 22:31 Last Admin: 10/16/16 21:44 Dose: 80 mg Benzonatate (Tessalon) 200 mg PO TID PRN PRN Reason: Cough Stop: 04/16/17 22:23 Carvedilol (Coreg) 25 mg PO BIDWM RUSTAM PRN Reason: Protocol Stop: 04/17/17 17:01 Last Admin: 10/17/16 07:39 Dose: 25 mg Docusate Sodium (Colace) 100 mg PO BID PRN PRN Reason: Constipation Stop: 04/16/17 22:12 Guaifenesin (Mucinex) 600 mg PO BID RUSTAM Stop: 04/17/17 09:01 Last Admin: 10/16/16 21:44 Dose: 600 mg Heparin Sodium (Porcine) (Heparin) 7,800 unit 70 unit/kg (7800 unit) IVP Q6HR PRN PRN Reason: SEE COMMENTS Stop: 04/16/17 22:41 Heparin Sodium (Porcine) (Heparin) 3,900 unit 35 unit/kg (3900 unit) IVP Q6H PRN PRN Reason: SEE COMMENTS Stop: 04/16/17 22:41 Sodium Chloride (0.9 % Sodium Chloride) 1,000 mls @ 50 mls/hr IVC .Q20H [facility] Stop: 04/16/17 22:16 Last Admin: 10/17/16 06:36 Dose: 50 mls/hr Ceftriaxone Sodium 1,000 mg/ (Dextrose) 100 mls @ 200 mls/hr IVPB Q12HR [facility] Stop: 04/16/17 23:01 Last Admin: 10/17/16 06:36 Dose: 200 mls/hr Heparin Sodium/Dextrose (Heparin 25,000 Unit/500 Ml D5w) 25,000 unit in 500 mls @ 31.08 mls/hr IVC .Q16H6M RUSTAM; 14 UNIT/KG/HR PRN Reason: Protocol Stop: 04/16/17 22:46 Last Admin: 10/16/16 17:51 Dose: 14 unit/kg/hr, 31.08 mls/hr Doxycycline Hyclate 100 mg/ (Sodium Chloride) 100 mls @ 100 mls/hr IVPB Q12HR [facility] Stop: 04/17/17 06:01 Last Admin: 10/17/16 06:36 Dose: 100 mls/hr Lisinopril (Zestril) 5 mg PO DAILY RUSTAM PRN Reason: Protocol Stop: 04/17/17 09:01 Last Admin: 10/17/16 07:39 Dose: 5 mg Lorazepam (Ativan) 1 mg PO TID PRN PRN Reason: Anxiety Stop: 04/16/17 22:18 Last Admin: 10/16/16 21:44 Dose: 1 mg Metoclopramide HCl (Reglan) 5 mg PO BID PRN PRN Reason: Nausea Metoprolol Tartrate (Lopressor) 5 mg IVP Q6HR PRN PRN Reason: SEE COMMENTS Stop: 04/16/17 22:25 Morphine Sulfate (Morphine Sulfate) 2 mg IVP Q4HR PRN PRN Reason: Severe Pain (7-10) Stop: 04/16/17 22:12 Naloxone HCl (Narcan) 0.4 mg IVP Q2MIN PRN PRN Reason: Opioid Reversal Stop: 04/16/17 22:12 Nicotine (Nicoderm) 21 mg TD DAILY PRN PRN Reason: Nicotine Cravings Stop: 04/16/17 22:31 Omeprazole (Prilosec) 40 mg PO DAILY RUSTAM PRN Reason: Protocol Stop: 04/17/17 09:01 Last Admin: 10/17/16 07:39 Dose: 40 mg Ondansetron HCl (Zofran) 4 mg IVP Q8HR PRN PRN Reason: Nausea And Vomiting Stop: 04/16/17 22:12 Oxycodone HCl (Roxicodone) 5 mg PO Q6HR PRN PRN Reason: Moderate Pain (4-6) Stop: 04/16/17 22:12 Thiamine HCl (Vitamin B-1) 100 mg PO DAILY [facility] Stop: 04/17/17 09:01 Last Admin: 10/17/16 07:38 Dose: 100 mg Vitamin D (Vitamin D) 1,000 unit PO DAILY [facility] Stop: 04/17/17 09:01 Last Admin: 10/17/16 07:39 Dose: 1,000 unit Warfarin Sodium (Coumadin) 5 mg PO DAILY@1800 [facility] Stop: 04/17/17 18:01 Last Admin: 10/16/16 18:17 Dose: 5 mg - Imaging and Cardiology Chest Xray: report reviewed Echo: report reviewed - EKG Interpretation EKG results cardiology: other (avg HR on tele 92 past 12 hrs, afib) Consult Discharge Plan - Plan Referrals: Hiren Adame Jr, MD [Primary Care Provider] -
[2016-10-17] MEDS: *HR* LORazepam 1 MG TABLET PO PRN ×2 (11:15→22:26)
--- NOTE | 2016-10-17 11:43 | Internal Med Progress Note ---
Date of Encounter: 10/17/16 Time of Encounter: 11:41 - Assessment and plan (1) Atrial fibrillation with RVR Current Visit: Yes Status: Acute Assessment and plan: likely related to dehydration and underlying infection. Heart rate is much better controlled now. Continue Coreg. Cardiology follow-up appreciated, discontinue IV heparin drip and continue Coumadin with goal INR 2-3. Echocardiogram shows mildly decreased EF at 40% with regional wall motion abnormalities, mild to moderate tricuspid regurgitation, mild pulmonary hypertension. (2) Community acquired pneumonia Current Visit: Yes Status: Acute Assessment and plan: Improving clinically but does have slightly worse leukocytosis. No fever and improving oxygen requirements. 2 sets of blood cultures remain negative. Change antibiotics to IV Levaquin and continue IV doxycycline. Continue to monitor closely. CT chest shows possible bilateral lower lobe infiltrates along with several groundglass opacities and solid nodules in left upper lobe. Explained these findings to the patient, could be infectious or inflammatory and can be interpreted accurately after being treated for acute infection and recommended to have repeat CT scan in 3 months and follow-up as outpatient. Patient quit smoking more than 30 years ago and has had no occupational exposure but he does have family history of lung cancer in his brother. (3) Acute and chronic respiratory failure with hypoxia Current Visit: Yes Status: Acute Assessment and plan: due to Pneumonia and RVR; improving oxygen requirements. (4) TRU (acute kidney injury) Current Visit: Yes Status: Acute Assessment and plan: hold Lasix and Spironolactone for now; serum creatinine slightly improving, patient may have chronic kidney disease. Will get renal ultrasound. (5) Coronary artery disease Current Visit: Yes Status: Chronic Qualifiers: Coronary Disease-Associated Artery/Lesion type: bypass graft [place] vs. transplanted heart: [place] heart Associated angina: angina presence unspecified Qualified Code(s): I25.810 - Atherosclerosis of coronary artery bypass graft(s) without angina pectoris (6) Essential hypertension Current Visit: Yes Status: Chronic (7) Chronic respiratory failure with hypoxia Current Visit: Yes Status: Chronic (8) Ischemic cardiomyopathy Current Visit: Yes Status: Chronic - Subjective Interval history: Denies new complaints. Improved chest pain and shortness of breath. Tolerates oral diet. Saturating well on 3 L nasal cannula. No fever, chills, palpitations or cough. - Constitutional Vitals: Temp Pulse Resp BP Pulse Ox 98.7 F 77 19 126/65 92 L 10/17/16 06:52 10/17/16 11:10 10/17/16 06:52 10/17/16 06:52 10/17/16 11:10 General appearance: Present: A&O X 3, obese, answers questions appropriately - Respiratory Respiratory exam: Present: CTAB. Absent: accessory muscle use, rales, rhonchi, wheezes - Cardiovascular Cardiovascular exam: Present: RRR, +S1, +S2. Absent: diastolic murmur, gallop, rubs, systolic murmur - GI/Abdominal GI/Abdominal exam: Present: normal bowel sounds, soft, no peritoneal signs. Absent: distended, tenderness - Extremities Exam Extremities exam: Present: full ROM, pedal edema, warm, radial pulses palpable and symetrical. Absent: calf tenderness, cyanotic Internal Medicine: Result - Labs CBC & Chem 7: 10/17/16 03:16 10/17/16 03:16 Labs: Short CBC 10/17/16 Range/Units 03:16 WBC 24.4 H (4.3-11.1) K/mcL Hgb 11.1 L D (12.9-16.9) g/dL Hct 34.8 L (37.5-50.1) % Plt Count 307 (140-400) K/mcL Neutrophils # 20.9 H (1.6-8.9) K/mcL BMP 10/17/16 03:16 Sodium 133 L D Potassium 4.0 Chloride 99 Carbon Dioxide 25 BUN 36 H D Creatinine 1.56 H Glucose 126 H Calcium 8.3 L Cardiac Enzymes 10/16/16 Range/Units 13:34 Troponin I 0.01 (0-0.03) ng/mL - ABG Interpretation ABG results: PT/INR, D-dimer PT 14.3 Seconds (9.4-12.1) H 10/17/16 03:16 Consult Discharge Plan - Plan Referrals: Hiren Adame Jr, MD [Primary Care Provider] -
--- NOTE | 2016-10-17 13:39 | Event Note ---
Date of Encounter: 10/17/16 Time of Encounter: 13:30 - Cardiology Event Note Patient seen and examined this afternoon with at bedside. Systolic blood pressure 120s and heart rate remains in the 70s to 80s. No further recommendations. They are both agreeable to Coumadin, anticipate will need [facility] referral. Re-consult as needed.
[2016-10-17] MEDS: Levofloxacin 750 MG/150 ML 750 MG/150 ML BAG IVPB SCH (13:54)
[2016-10-17 14:46] LABS: Bilirubin,Urine Negative (Negative); Blood,Urine Negative (Negative); Clarity,Urine Clear (Clear); Color,Urine Yellow (Yellow); Glucose,Urine (UA) Normal (Normal); Ketones,Urine Negative (Negative); Leukocyte Esterase,Urine Negative (Negative); Nitrite,Urine Negative (Negative); Protein,Urine Negative (Neg-Trace); Specific Gravity,Urine 1.021 (1.010-1.025); Urobilinogen,Urine Normal (Normal)
[2016-10-17] MEDS: *HR* Warfarin 5 MG TABLET PO SCH (18:06)
[2016-10-18] MEDS: Ipratropium/Albuterol Neb 3 ML IH SCH ×4 (04:28→22:59)
[2016-10-18 05:57] LABS: Basophils % 0.4 %; Eosinophils # 0.2 K/mcL (0.0-0.6); Eosinophils % 1.7 %; Hematocrit 35.6 % (37.5-50.1); Hemoglobin 10.8 g/dL (12.9-16.9); Immature Granulocytes % 0.4 % (0-4); Lymphocytes # 1.7 K/mcL (0.6-4.6); Lymphocytes % 15.5 %; Mean Corpuscular HGB Conc 30.3 g/dL (31.6-35.5); Mean Corpuscular Hemoglobin 26.2 pg (28.0-33.3); Mean Corpuscular Volume 86.4 fL (83.0-100.0); Monocytes # 1.1 K/mcL (0.0-1.3); Monocytes % 9.7 %; Neutrophils # 8.1 K/mcL (1.6-8.9); Platelet Count 269 K/mcL (140-400); Red Blood Count 4.12 M/mcL (4.19-5.50); Red Cell Distribution Width 15.6 % (11.5-14.5); Segmented Neutrophils % 72.3 %
[2016-10-18 06:09] LABS: INR 1.2; Prothrombin Time 13.5 Seconds (9.4-12.1)
[2016-10-18 06:13] LABS: Activated Partial Thrombo Time 25.4 Seconds (26.0-36.0)
[2016-10-18 06:18] LABS: BUN/Creatinine Ratio 25 (6-26); Calcium 8.4 mg/dL (8.6-10.8); Carbon Dioxide 29 mEq/L (19-29); Chloride 102 mEq/L (98-109); Glucose 99 mg/dL (70-99); Osmolality,Calculated 288 (280-300); Potassium 4.5 mEq/L (3.5-4.5); Sodium 137 mEq/L (136-145); eGFR For African Americans > 60 (> 60); eGFR For Non-African Americans > 60 (> 60)
[2016-10-18 06:28] LABS: Blood Urea Nitrogen 25 mg/dL (8-26)
[2016-10-18] MEDS: Doxycycline 100 MG in 0.9 % Sodium Chloride Mini Bag 100 ML IVPB SCH ×2 (06:39→18:21)
[2016-10-18] MEDS: Aspirin Enteric Coated 81 MG Tablet PO SCH (07:43)
[2016-10-18] MEDS: Thiamine (B-1) 100 MG TABLET PO SCH (07:43)
[2016-10-18] MEDS: Cholecalciferol (D-3) 1,000 UNIT TABLET PO SCH (07:43)
[2016-10-18] MEDS ORDERED: *HR* Warfarin 10 MG TABLET PO SCH (18:00)
[2016-10-18] MEDS: *HR* Warfarin 5 MG TABLET PO SCH (18:19)
--- NOTE | 2016-10-18 19:09 | Internal Med Progress Note ---
Date of Encounter: 10/18/16 Time of Encounter: 21:53 - Assessment and plan (1) Essential hypertension Current Visit: Yes Status: Chronic (2) Atrial fibrillation with RVR Current Visit: Yes Status: Acute (3) Acute and chronic respiratory failure with hypoxia Current Visit: Yes Status: Acute (4) Chronic respiratory failure with hypoxia Current Visit: Yes Status: Chronic (5) S/P CABG x 4 Current Visit: Yes Status: Chronic (6) Morbid obesity with BMI of 40.0-44.9, adult Current Visit: Yes Status: Chronic (7) TRU (acute kidney injury) Current Visit: Yes Status: Acute Assessment and plan: # Atrial Fibrilation with RVR : In setting of ongoig infection. On rate control and AC with coumadin. INR remains subtherapeutic, will give 10mg coumadin tonight and repeat PT/INR in am. Echocardiogram shows mildly decreased EF at 40 % with regional wall motion abnormalities, mild to moderate tricuspid regurgitation, mild pulmonary hypertension. # Community Acquired Pneumonia: On IV Levaquin and Doxycyline, improving clinically. CT chest shows possible bilateral lower lobe infiltrates along with several groundglass opacities and solid nodules in left upper lobe. Explained these findings to the patient, could be infectious or inflammatory and can be interpreted accurately after being treated for acute infection and recommended to have repeat CT scan in 3 months and follow-up as outpatient. Patient quit smoking more than 30 years ago and has had no occupational exposure but he does have family history of lung cancer in his brother. # TRU: IN setting of dehydration, cytokine medicated in setting of pneumonia. Hold lasix and aldactone. Monitor closely. # Essential HTN: continue home meds # Chronic resp failure with hypoxia: On bronchodilators, supplemental oxygen # DVT Prophylaxis - Time Spent With Patient 25 - 35 minutes - Subjective Interval history: seen and examined at bedside.Denies any chest pain, sob, abdominal pain, urinary symptoms - Constitutional Vitals: Temp Pulse Resp BP Pulse Ox 98.4 F 92 16 121/69 95 10/18/16 15:10 10/18/16 15:51 10/18/16 16:24 10/18/16 15:10 10/18/16 16:24 General appearance: Present: A&O X 3, obese, answers questions appropriately - Head Head exam: Present: atraumatic, normocephalic - Eye Eye exam: Present: PERRL, conjuntiva pink, sclera anicteric Pupils: Present: PERRL - Neck Neck exam general surgery: Present: supple, trachea midline. Absent: lymphadenopathy - Respiratory Respiratory exam: Present: CTAB. Absent: accessory muscle use, rales, rhonchi, wheezes - Cardiovascular Cardiovascular exam: Present: RRR, +S1, +S2. Absent: diastolic murmur, gallop, rubs, systolic murmur - GI/Abdominal GI/Abdominal exam: Present: normal bowel sounds, soft, no peritoneal signs. Absent: distended, tenderness - Extremities Exam Extremities exam: Present: warm, radial pulses palpable and symetrical. Absent : calf tenderness, cyanotic, pedal edema - Neurological Exam Neurological exam: Present: CN II-XII intact, oriented X3, no focal deficits. Absent: pronater drift, facial droop, speech deficit - Skin Skin exam: Present: dry, intact Internal Medicine: Result - Labs CBC & Chem 7: 10/18/16 05:32 10/18/16 05:32 Labs: Short CBC 10/18/16 Range/Units 05:32 WBC 11.2 H D (4.3-11.1) K/mcL Hgb 10.8 L (12.9-16.9) g/dL Hct 35.6 L (37.5-50.1) % Plt Count 269 (140-400) K/mcL Neutrophils # 8.1 (1.6-8.9) K/mcL BMP 10/18/16 05:32 Sodium 137 Potassium 4.5 Chloride 102 Carbon Dioxide 29 BUN 25 D Creatinine 1.01 Glucose 99 Calcium 8.4 L - ABG Interpretation ABG results: PT/INR, D-dimer PT 13.5 Seconds (9.4-12.1) H 10/18/16 05:32 Consult Discharge Plan - Plan Referrals: Luan Emanuel MD [Partnered Physician] - 11/04/16 8:20 am Hiren Adame Jr, MD [Primary Care Provider] - 10/26/16 9:15 am
[2016-10-18] MEDS: *HR* LORazepam 1 MG TABLET PO PRN (22:05)
[2016-10-19] MEDS: Ipratropium/Albuterol Neb 3 ML IH SCH ×2 (04:11→12:03)
[2016-10-19 05:38] LABS: Hematocrit 34.7 % (37.5-50.1); Hemoglobin 10.7 g/dL (12.9-16.9); Mean Corpuscular HGB Conc 30.8 g/dL (31.6-35.5); Mean Corpuscular Hemoglobin 26.2 pg (28.0-33.3); Mean Platelet Volume 10.2 fL (9.4-12.4); Platelet Count 286 K/mcL (140-400); Red Blood Count 4.08 M/mcL (4.19-5.50); Red Cell Distribution Width 15.6 % (11.5-14.5)
[2016-10-19 05:44] LABS: INR 1.5
[2016-10-19 05:47] LABS: Activated Partial Thrombo Time 26.6 Seconds (26.0-36.0)
[2016-10-19] MEDS: Doxycycline 100 MG in 0.9 % Sodium Chloride Mini Bag 100 ML IVPB SCH (06:18)
[2016-10-19] MEDS: Aspirin Enteric Coated 81 MG Tablet PO SCH (09:12)
[2016-10-19] MEDS: Thiamine (B-1) 100 MG TABLET PO SCH (09:12)
[2016-10-19] MEDS: Cholecalciferol (D-3) 1,000 UNIT TABLET PO SCH (09:12)
[2016-10-19] MEDS: Levofloxacin 750 MG/150 ML 750 MG/150 ML BAG IVPB SCH (12:01)
[2016-10-19 12:06] VITALS: BP 115/81
--- NOTE | 2016-10-19 13:55 | Discharge Summary ---
Date of Encounter: 10/19/16 Time of Encounter: 09:50 - Discharge Diagnosis (1) Essential hypertension Priority: Secondary Status: Chronic (2) Atrial fibrillation with RVR Priority: Primary Status: Acute (3) Acute and chronic respiratory failure with hypoxia Priority: Primary Status: Acute (4) Chronic respiratory failure with hypoxia Priority: Secondary Status: Chronic (5) S/P CABG x 4 Priority: Secondary Status: Chronic (6) Morbid obesity with BMI of 40.0-44.9, adult Priority: Secondary Status: Chronic (7) TRU (acute kidney injury) Priority: Primary Status: Acute - Discharge Medications Prescriptions: GuaiFENesin ER [Mucinex] 600 mg PO BID #14 tbbp.12hr Levofloxacin [Levaquin] 500 mg PO DAILY #5 tablet Warfarin [Coumadin] 5 mg PO DAILY@1800 #7 tablet Home Medications: Cholecalciferol (D-3) [Vitamin D] 1,000 unit PO DAILY 05/24/16 [History] LORazepam [Ativan] 1 mg PO TID PRN 05/24/16 [History] Omeprazole [PriLOSEC] 40 mg PO DAILY 05/24/16 [History] Pyridoxine HCl [Vitamin B-6] 100 mg PO DAILY 05/24/16 [History] Aspirin Enteric Coated [Aspirin EC] 81 mg PO DAILY 09/12/16 [History] Atorvastatin [Lipitor] 80 mg PO HS 09/12/16 [History] Carvedilol [Coreg] 12.5 mg PO BIDWM 09/12/16 [History] Cyproheptadine HCl 4 mg PO TID 09/12/16 [History] Digoxin [Lanoxin] 0.25 mg PO DAILY 09/12/16 [History] Fluticasone Propionate Nasal [Flonase] 50 mcg NS BID 09/12/16 [History] Furosemide [Lasix] 40 mg PO BID 09/12/16 [History] Lisinopril [Zestril] 5 mg PO DAILY 09/12/16 [History] Metoclopramide HCl 5 mg PO BID PRN 09/12/16 [History] Oxygen 2 l IN AD 09/12/16 [History] Spironolactone [Aldactone] 12.5 mg PO DAILY 09/12/16 [History] Potassium Chloride [Klor-Con Sprinkle] 10 meq PO BID 10/16/16 [History] GuaiFENesin ER [Mucinex] 600 mg PO BID #14 tbbp.12hr 10/19/16 [Rx] Levofloxacin [Levaquin] 500 mg PO DAILY #5 tablet 10/19/16 [Rx] Warfarin [Coumadin] 5 mg PO DAILY@1800 #7 tablet 10/19/16 [Rx] Allergies/Adverse Reactions: Allergies Penicillins Adverse Reaction (Verified 05/24/16 13:13) Nausea Date of admission: 10/16/16 11:23 Primary care physician: Hiren Adame Jr, MD Consults: 10/17/16 13:31 dietary consult [Consult to Nutrition] [CONS] Routine Comment: COUMADIN EDUCATION Consulting Provider: NUTRITION Reason for Dietary Consult: Diet Education - Patient Status Disposition: Home, Self-Care Condition: Fair Overall status at discharge: patient is progressing back to baseline - Discharge Instructions Instructions: Warfarin (By mouth), Atrial Fibrillation (DC), Pneumonia (DC) Follow Up With: THAD SAPP [Other] - 10/25/16 1:30 pm (YOUR FIRST APPOINTMENT WILL TAKE ANYWHERE FROM 45 MINS TO 1 HOUR. PLEASE TAKE YOU WARFIN WITH YOU TO YOUR APPOINTMENT. PLEASE TAKE A LIST OF YOUR CURRENT MEDICATIONS WITH YOU TO YOUR APPOINTMENTS) Luan Emanuel MD [Partnered Physician] - 11/04/16 8:20 am Hiren Adame Jr, MD [Primary Care Provider] - 10/26/16 9:15 am - Diet and Activity Activity: increase activity as tolerated Diet: advance to your usual diet Interval History: 71 y/o male with pmh of CAP,TRU,essential HTN, chronic resp failure on supplementaloxygen admitted to the hospital with acute sob. He was diagnosed to have CAP for which he was treated with IV Levaquin and doxyxyxline which was changed to PO Levaquin on discharge. CT chest shows possible bilateral lower lobe infiltrates along with several groundglass opacities and solid nodules in left upper lobe. Explained these findings to the patient, could be infectious or inflammatory and can be interpreted accurately after being treated for acute infection and recommended to have repeat CT scan in 3 months and follow-up as outpatient. Patient diagnosed to be in new AFib with RVR. He was started on rate control and AC with coumadin. INR sub therapeutic on discharge. Dose of coumadin adjusted and he is scheduled to follow up with coumadin clinic tomoorrow to monitor INR and adjust coumadin doses accordingly. Hospital course: Mr. Felix is a 71 year old male - Time Spent with Patient Total time spent providing and/or coordinating discharge services: Greater than 30 minutes - Constitutional Vitals: Temp Pulse Resp BP Pulse Ox 98 F 86 18 115/81 95 10/19/16 11:00 10/19/16 12:07 10/19/16 12:04 10/19/16 11:00 10/19/16 12:04 General appearance: Present: mild distress, A&O X 3, morbidly obese, answers questions appropriately - Head Head exam: Present: atraumatic, normocephalic - Eye Eye exam: Present: PERRL, conjuntiva pink, sclera anicteric Pupils: Present: PERRL - Neck Neck exam general surgery: Present: supple, trachea midline. Absent: lymphadenopathy - Respiratory Respiratory exam: Present: CTAB. Absent: accessory muscle use, rales, rhonchi, wheezes - Cardiovascular Cardiovascular exam: Present: RRR, +S1, +S2. Absent: diastolic murmur, gallop, rubs, systolic murmur - GI/Abdominal GI/Abdominal exam: Present: normal bowel sounds, soft, no peritoneal signs. Absent: distended, tenderness - Extremities Exam Extremities exam: Present: warm, radial pulses palpable and symetrical. Absent : calf tenderness, cyanotic, pedal edema - Neurological Exam Neurological exam: Present: CN II-XII intact, oriented X3, no focal deficits. Absent: pronater drift, facial droop, speech deficit - Skin Skin exam: Present: dry, intact
[2016-10-19] MEDS: *HR* Warfarin 5 MG TABLET PO SCH (13:56)
== END 2016-10-19 16:20 | disposition home or self-care (01) | DRG 193 ==
LOC: EMEROO 17:01 → 2NENU 17:01 → SUATTDRO 19:15 → 2NENU 20:08 → 2NNU 10-16 01:33
PROVIDERS: ADMIT Internal Medicine; ATTEND Internal Medicine

== ENCOUNTER 2021-08-13 11:13 | Observation (INO) ==
[2021-08-13] MEDS ORDERED: 0.9 % Sodium Chloride 1,000 ML IVC ONE (11:26)
[2021-08-13 12:03] LABS: Basophils # 0.1 K/mcL (0.0-0.2); Basophils % 0.4 %; Eosinophils # 0.1 K/mcL (0.0-0.6); Eosinophils % 0.4 %; Hematocrit 39.1 % (37.5-50.1); Hemoglobin 12.4 g/dL (12.9-16.9); Immature Granulocytes % 0.5 % (0-4); Lymphocytes # 1.5 K/mcL (0.6-4.6); Lymphocytes % 6.3 %; Mean Corpuscular HGB Conc 31.7 g/dL (31.6-35.5); Mean Corpuscular Hemoglobin 29.3 pg (28.0-33.3); Mean Corpuscular Volume 92.4 fL (83.0-100.0); Mean Platelet Volume 10.9 fL (9.4-12.4); Monocytes # 2.1 K/mcL (0.0-1.3); Monocytes % 8.7 %; Platelet Count 292 K/mcL (140-400); Red Blood Count 4.23 M/mcL (4.19-5.50); Red Cell Distribution Width 16.5 % (11.5-14.5); Segmented Neutrophils % 83.7 %; White Blood Count 23.9 K/mcL (4.3-11.1)
[2021-08-13 12:20] LABS: INR 1.2; Prothrombin Time 13.6 Seconds (9.4-12.1)
[2021-08-13 12:22] LABS: Activated Partial Thrombo Time 26.6 Seconds (26.0-36.0)
[2021-08-13 12:26] LABS: Alanine Aminotransferase 11 Units/L (7-52); Albumin 3.5 g/dL (3.5-5.7); Albumin/Globulin Ratio 1.1 (1.1-2.2); Alkaline Phosphatase 67 Units/L (34-104); Aspartate Amino Transferase 14 Units/L (13-39); BUN/Creatinine Ratio 23 (6-26); Bilirubin,Direct 0.2 mg/dL (0.0-0.2); Bilirubin,Indirect 0.4 mg/dL (0.0-1.0); Bilirubin,Total 0.6 mg/dL (0.3-1.0); Blood Urea Nitrogen 43 mg/dL (8-23); Calcium 9.2 mg/dL (8.6-10.3); Carbon Dioxide 30 mEq/L (23-29); Chloride 95 mEq/L (98-107); Creatine Kinase 22 Units/L (30-223); Ethanol < 10 mg/dL (Less than 10); Globulin 3.3 g/dL (2.4-3.5); Glucose 116 mg/dL (70-105); Osmolality,Calculated 290 (280-300); Potassium 3.4 mEq/L (3.5-5.1); Sodium 134 mEq/L (136-145); Total Protein 6.8 g/dL (6.4-8.9); Troponin I < 0.03 ng/mL (< 0.04); eGFR For African Americans 44 (> 60); eGFR For Non-African Americans 36 (> 60)
[2021-08-13] MEDS ORDERED: Isovue-370 500 ML BOTTLE IVP ONE (12:33)
[2021-08-13 13:40] LABS: Influenza A PCR Negative (Negative); Influenza B PCR Negative (Negative); Resp. Syncytial Virus PCR Negative (Negative); SARS-CoV-2 by PCR (In House) Negative (Negative)
[2021-08-13 13:49] LABS: Amphetamine Screen,Urine Negative ng/mL (Cutoff=1000); Barbiturate Screen,Urine Negative ng/mL (Cutoff=200); Benzodiazepines Screen,Urine Negative ng/mL (Cutoff=200); Cannabinoid Screen,Urine Negative ng/mL (Cutoff = 50); Cocaine Screen,Urine Negative ng/mL (Cutoff= 300); Opiate Screen,Urine Negative ng/mL (Cutoff=300); Phencyclidine Screen,Urine Negative ng/mL (Cutoff=25)
[2021-08-13 13:54] LABS: Bacteria,Urine Few per hpf (None-Few); Bilirubin,Urine Negative (Negative); Blood,Urine Moderate (Negative); Clarity,Urine Clear (Clear); Color,Urine Light-Yellow (Yellow); Glucose,Urine (UA) Normal (Normal); Hyaline Casts,Urine Few per lpf (None Seen); Ketones,Urine Negative (Negative); Leukocyte Esterase,Urine Large (Negative); Mucus,Urine Few per lpf (None-Few); Nitrite,Urine Negative (Negative); Protein,Urine Negative (Neg-Trace); Specific Gravity,Urine 1.026 (1.010-1.025); Squamous Epithelial Cell,Urine Few per hpf (None-Few); Urobilinogen,Urine Normal (Normal); WBC,Urine 50-100 per hpf (0-3)
[2021-08-13] MEDS ORDERED: Thiamine (B-1) 100 MG in 0.9 % Sodium Chloride 50 ML IVPB STA (14:04)
[2021-08-13] MEDS ORDERED: Aspirin 325 MG TABLET PO ONE (14:04)
[2021-08-13] MEDS ORDERED: Naloxone 0.4 MG/ML INJ IVP PRN (16:34)
[2021-08-13] MEDS ORDERED: Ondansetron 4 MG/2 ML VIAL IVP PRN (16:34)
[2021-08-13] MEDS: cefTRIAXone 2,000 MG in 0.9 % Sodium Chloride Mini Bag 100 ML IVPB SCH (17:07)
[2021-08-13] MEDS: 0.9 % Sodium Chloride 1,000 ML IVC SCH (17:07)
[2021-08-13] MEDS: carvediloL 6.25 MG TABLET PO SCH (17:08)
[2021-08-13] MEDS ORDERED: Albumin 25% 25gram/100mL 25 GM/100 ML IV.SOLN IVPB ONE ×2 (19:01→22:38)
[2021-08-13] MEDS: *HR* Heparin 5,000 UNIT/ML VIAL SQ SCH (20:41)
[2021-08-14] MEDS: *HR* Heparin 5,000 UNIT/ML VIAL SQ SCH ×3 (04:52→20:13)
[2021-08-14 05:26] LABS: Basophils % 0.3 %; Eosinophils # 0.1 K/mcL (0.0-0.6); Eosinophils % 0.6 %; Immature Granulocytes % 0.3 % (0-4); Lymphocytes # 1.4 K/mcL (0.6-4.6); Lymphocytes % 9.8 %; Mean Corpuscular HGB Conc 30.6 g/dL (31.6-35.5); Mean Corpuscular Hemoglobin 28.6 pg (28.0-33.3); Mean Corpuscular Volume 93.5 fL (83.0-100.0); Mean Platelet Volume 10.6 fL (9.4-12.4); Monocytes # 1.3 K/mcL (0.0-1.3); Monocytes % 8.7 %; Neutrophils # 11.5 K/mcL (1.6-8.9); Platelet Count 199 K/mcL (140-400); Red Blood Count 3.53 M/mcL (4.19-5.50); Red Cell Distribution Width 16.8 % (11.5-14.5); Segmented Neutrophils % 80.3 %; White Blood Count 14.3 K/mcL (4.3-11.1)
[2021-08-14 05:27] LABS: Hemoglobin 10.1 g/dL (12.9-16.9)
[2021-08-14 05:36] LABS: INR 1.3; Prothrombin Time 14.4 Seconds (9.4-12.1)
[2021-08-14 05:47] LABS: Albumin 3.4 g/dL (3.5-5.7); Albumin/Globulin Ratio 1.4 (1.1-2.2); Bilirubin,Total 0.5 mg/dL (0.3-1.0); Calcium 8.4 mg/dL (8.6-10.3); Globulin 2.4 g/dL (2.4-3.5); Magnesium 1.6 mg/dL (1.6-2.6); Potassium 3.2 mEq/L (3.5-5.1); Total Protein 5.8 g/dL (6.4-8.9)
[2021-08-14] MEDS ORDERED: cefTRIAXone 1,000 MG in Water for inj. (sterile) 10 ML IVP SCH (09:00)
[2021-08-14] MEDS: cefTRIAXone 2,000 MG in 0.9 % Sodium Chloride Mini Bag 100 ML IVPB SCH (09:26)
[2021-08-14] MEDS: carvediloL 6.25 MG TABLET PO SCH ×2 (09:27→17:31)
[2021-08-14] MEDS: *HR* Digoxin 0.25 MG TABLET PO SCH (09:29)
[2021-08-14] MEDS: 0.9 % Sodium Chloride 1,000 ML IVC SCH ×2 (11:34→17:39)
[2021-08-14] MEDS ORDERED: *HR* Warfarin 5 MG TABLET PO ONE (18:00)
[2021-08-14] MEDS ORDERED: Warfarin perPT PO PRN (18:00)
[2021-08-14] MEDS ORDERED: *HR* Warfarin 0.5 MG TABLET PO ONE (18:00)
[2021-08-15] MEDS: *HR* Heparin 5,000 UNIT/ML VIAL SQ SCH ×3 (05:02→21:28)
[2021-08-15 07:16] LABS: Hematocrit 32.7 % (37.5-50.1); Hemoglobin 10.2 g/dL (12.9-16.9); Mean Corpuscular HGB Conc 31.2 g/dL (31.6-35.5); Mean Corpuscular Hemoglobin 29.3 pg (28.0-33.3); Platelet Count 230 K/mcL (140-400); Red Blood Count 3.48 M/mcL (4.19-5.50); Red Cell Distribution Width 16.6 % (11.5-14.5)
[2021-08-15 07:31] LABS: INR 1.2; Prothrombin Time 13.2 Seconds (9.4-12.1)
[2021-08-15 07:41] LABS: Calcium 8.6 mg/dL (8.6-10.3); Magnesium 1.7 mg/dL (1.6-2.6); Potassium 3.5 mEq/L (3.5-5.1)
[2021-08-15] MEDS: cefTRIAXone 2,000 MG in 0.9 % Sodium Chloride Mini Bag 100 ML IVPB SCH (09:35)
[2021-08-15] MEDS: carvediloL 6.25 MG TABLET PO SCH ×2 (09:36→16:18)
[2021-08-15] MEDS: Pyridoxine (B-6) 50 MG TABLET PO SCH (09:36)
[2021-08-15] MEDS: Cholecalciferol (D-3) 1,000 UNIT (25MCG) TABLET PO SCH (09:36)
[2021-08-15] MEDS: Cyanocobalamin (B-12) 1,000 MCG TABLET PO SCH (09:36)
[2021-08-15] MEDS: Aspirin Enteric Coated 81 MG Tablet PO SCH (09:36)
[2021-08-15] MEDS: *HR* Digoxin 0.25 MG TABLET PO SCH (09:40)
[2021-08-15] MEDS: *HR* LORazepam 1 MG TABLET PO SCH ×2 (14:34→21:27)
[2021-08-15] MEDS: Cyprohepatdine 4 MG TABLET PO SCH ×2 (16:18→21:28)
[2021-08-15] MEDS ORDERED: *HR* Warfarin 5 MG TABLET PO ONE (18:00)
[2021-08-15] MEDS ORDERED: Cyprohepatdine 4 MG TABLET PO SCH (21:00)
[2021-08-15] MEDS ORDERED: *HR* LORazepam 1 MG TABLET PO SCH (21:00)
[2021-08-16] MEDS: *HR* Heparin 5,000 UNIT/ML VIAL SQ SCH ×2 (06:25→16:12)
[2021-08-16 06:51] LABS: Hematocrit 34.1 % (37.5-50.1); Hemoglobin 10.9 g/dL (12.9-16.9); Mean Corpuscular Hemoglobin 29.8 pg (28.0-33.3); Mean Corpuscular Volume 93.2 fL (83.0-100.0); Mean Platelet Volume 10.2 fL (9.4-12.4); Platelet Count 252 K/mcL (140-400); Red Blood Count 3.66 M/mcL (4.19-5.50); Red Cell Distribution Width 16.2 % (11.5-14.5); White Blood Count 11.9 K/mcL (4.3-11.1)
[2021-08-16 07:01] LABS: INR 1.1; Prothrombin Time 12.8 Seconds (9.4-12.1)
[2021-08-16 07:07] LABS: BUN/Creatinine Ratio 25 (6-26); Blood Urea Nitrogen 30 mg/dL (8-23); Calcium 9.1 mg/dL (8.6-10.3); Carbon Dioxide 35 mEq/L (23-29); Chloride 98 mEq/L (98-107); Glucose 102 mg/dL (70-105); Osmolality,Calculated 288 (280-300); Potassium 3.6 mEq/L (3.5-5.1); Sodium 136 mEq/L (136-145); eGFR For African Americans > 60 (> 60); eGFR For Non-African Americans 59 (> 60)
[2021-08-16] MEDS: *HR* LORazepam 1 MG TABLET PO SCH (07:51)
[2021-08-16] MEDS: Cyanocobalamin (B-12) 1,000 MCG TABLET PO SCH (07:51)
[2021-08-16] MEDS: Cholecalciferol (D-3) 1,000 UNIT (25MCG) TABLET PO SCH (07:51)
[2021-08-16] MEDS: Aspirin Enteric Coated 81 MG Tablet PO SCH (07:54)
[2021-08-16] MEDS: carvediloL 6.25 MG TABLET PO SCH (07:54)
[2021-08-16] MEDS: cefTRIAXone 2,000 MG in 0.9 % Sodium Chloride Mini Bag 100 ML IVPB SCH (07:54)
[2021-08-16] MEDS: *HR* Digoxin 0.25 MG TABLET PO SCH (07:54)
[2021-08-16] MEDS: Pyridoxine (B-6) 50 MG TABLET PO SCH (07:54)
[2021-08-16] MEDS: Cyprohepatdine 4 MG TABLET PO SCH (07:54)
[2021-08-16] MEDS ORDERED: metOLazone 2.5 MG TABLET PO SCH (08:15)
[2021-08-16] MEDS ORDERED: levoFLOXacin 750 MG TABLET PO SCH (09:00)
[2021-08-16] MEDS ORDERED: Furosemide 40 MG TABLET PO SCH (09:00)
[2021-08-16 14:28] VITALS: BP 124/75; PULSE 75; TEMP 97.7
[2021-08-16 15:06] VITALS: O2SAT 100
[2021-08-16] MEDS ORDERED: *HR* Warfarin 7.5 MG TABLET PO ONE (18:00)
[2021-08-16] MEDS ORDERED: Sacubitril/Valsartan 24/26 MG 1 TABLET PO SCH (21:00)
== END 2021-08-16 17:18 | disposition home or self-care (01) ==
LOC: EMEROOARM 11:13 → 3BNU 11:13 → SUATTDRO 14:58 → 3BNU 15:57
PROVIDERS: ADMIT Student in an Organized Health Care Education/Training Program; ATTEND Internal Medicine

== ENCOUNTER 2021-11-20 16:14 | Inpatient (IN) ==
[2021-11-20] MEDS ORDERED: Ipratropium/Albuterol Neb 3 ML IH ONE (16:53)
[2021-11-20] MEDS ORDERED: methylPREDNISolone 125 MG/2 ML VIAL IVP ONE (16:53)
[2021-11-20 17:59] LABS: Basophils # 0.1 K/mcL (0.0-0.2); Basophils % 0.5 %; Eosinophils # 0.2 K/mcL (0.0-0.6); Hematocrit 37.7 % (37.5-50.1); Hemoglobin 11.4 g/dL (12.9-16.9); Immature Granulocytes % 0.6 % (0-4); Lymphocytes # 1.3 K/mcL (0.6-4.6); Lymphocytes % 7.7 %; Mean Corpuscular HGB Conc 30.2 g/dL (31.6-35.5); Mean Corpuscular Hemoglobin 28.5 pg (28.0-33.3); Mean Corpuscular Volume 94.3 fL (83.0-100.0); Mean Platelet Volume 10.5 fL (9.4-12.4); Monocytes # 1.5 K/mcL (0.0-1.3); Monocytes % 9.1 %; Neutrophils # 13.6 K/mcL (1.6-8.9); Platelet Count 299 K/mcL (140-400); Segmented Neutrophils % 81.1 %; White Blood Count 16.8 K/mcL (4.3-11.1)
[2021-11-20] MEDS ORDERED: Furosemide 40 MG/4 ML VIAL IVP ONE (18:03)
[2021-11-20 18:04] LABS: VBG HCO3 38 mEq/L (21-27); VBG PCO2 73 mmHg (41-51); VBG PH 7.33 pH Units (7.32-7.42); VBG PO2 126 mmHg (25-50)
[2021-11-20 18:18] LABS: BUN/Creatinine Ratio 18 (6-26); Blood Urea Nitrogen 21 mg/dL (8-23); Calcium 9.3 mg/dL (8.6-10.3); Carbon Dioxide 38 mEq/L (23-29); Chloride 97 mEq/L (98-107); Glucose 115 mg/dL (70-105); Osmolality,Calculated 296 (280-300); Potassium 3.7 mEq/L (3.5-5.1); Sodium 141 mEq/L (136-145); Troponin I 0.03 ng/mL (< 0.04); eGFR For African Americans > 60 (> 60); eGFR For Non-African Americans > 60 (> 60)
[2021-11-20] MEDS ORDERED: cefTRIAXone 2,000 MG in 0.9 % Sodium Chloride 20 ML IVP ONE (18:24)
[2021-11-20] MEDS ORDERED: Azithromycin 500 MG in 0.9 % Sodium Chloride 250 ML IVPB ONE (18:24)
[2021-11-20] MEDS ORDERED: Naloxone 0.4 MG/ML INJ IVP PRN (20:05)
[2021-11-20] MEDS ORDERED: Ondansetron ODT 4 MG TAB.RAPDIS SL PRN (20:05)
[2021-11-20] MEDS ORDERED: Acetaminophen 325 MG TABLET PO PRN (20:05)
[2021-11-20 21:18] LABS: Phosphorous 3.9 mg/dL (2.7-4.5)
[2021-11-20] MEDS: Ipratropium/Albuterol Neb 3 ML IH SCH (21:25)
[2021-11-20] MEDS ORDERED: Perflutren Lipid Microsphere 1.3 ML in 0.9 % Sodium Chloride 8.7 ML IVP PRN (21:35)
[2021-11-20] MEDS: Sacubitril/Valsartan 24/26 MG 1 TABLET PO SCH (22:18)
[2021-11-20] MEDS ORDERED: *HR* LORazepam 2 MG/ML VIAL IVP ONE (22:19)
[2021-11-21] MEDS: Ipratropium/Albuterol Neb 3 ML IH SCH ×4 (00:05→11:29)
[2021-11-21] MEDS: Budesonide/Formoterol 160/4.5 1 PUFF INH IH SCH ×3 (00:09→19:57)
[2021-11-21 02:26] LABS: VBG HCO3 39 mEq/L (21-27); VBG PCO2 75 mmHg (41-51); VBG PH 7.33 pH Units (7.32-7.42); VBG PO2 68 mmHg (25-50)
[2021-11-21 02:31] LABS: Basophils % 0.2 %; Eosinophils % 0.1 %; Hematocrit 35.8 % (37.5-50.1); Hemoglobin 10.7 g/dL (12.9-16.9); Lymphocytes # 0.7 K/mcL (0.6-4.6); Lymphocytes % 5.2 %; Mean Corpuscular HGB Conc 29.9 g/dL (31.6-35.5); Mean Corpuscular Hemoglobin 28.4 pg (28.0-33.3); Mean Platelet Volume 10.6 fL (9.4-12.4); Monocytes # 0.2 K/mcL (0.0-1.3); Monocytes % 1.7 %; Neutrophils # 11.6 K/mcL (1.6-8.9); Platelet Count 262 K/mcL (140-400); Red Blood Count 3.77 M/mcL (4.19-5.50); Segmented Neutrophils % 91.8 %; White Blood Count 12.6 K/mcL (4.3-11.1)
[2021-11-21 02:46] LABS: Albumin 3.6 g/dL (3.5-5.7); Albumin/Globulin Ratio 1.2 (1.1-2.2); Bilirubin,Direct 0.1 mg/dL (0.0-0.2); Bilirubin,Indirect 0.3 mg/dL (0.0-1.0); Bilirubin,Total 0.4 mg/dL (0.3-1.0); Magnesium 2.1 mg/dL (1.6-2.6); Total Protein 6.6 g/dL (6.4-8.9)
[2021-11-21 02:47] LABS: BUN/Creatinine Ratio 18 (6-26); Blood Urea Nitrogen 23 mg/dL (8-23); Calcium 9.2 mg/dL (8.6-10.3); Carbon Dioxide 42 mEq/L (23-29); Chloride 100 mEq/L (98-107); Glucose 151 mg/dL (70-105); Osmolality,Calculated 299 (280-300); Potassium 3.6 mEq/L (3.5-5.1); Sodium 141 mEq/L (136-145); eGFR For African Americans > 60 (> 60); eGFR For Non-African Americans 56 (> 60)
[2021-11-21 02:48] LABS: INR 1.2; Prothrombin Time 13.7 Seconds (9.4-12.1)
[2021-11-21 02:59] LABS: Thyroid Stimulating Hormone 0.736 mcIU/mL (0.340-5.600)
[2021-11-21 03:56] LABS: Bilirubin,Urine Negative (Negative); Blood,Urine Negative (Negative); Clarity,Urine Clear (Clear); Color,Urine Light-Yellow (Yellow); Glucose,Urine (UA) Normal (Normal); Ketones,Urine Negative (Negative); Leukocyte Esterase,Urine Negative (Negative); Nitrite,Urine Negative (Negative); Protein,Urine Trace mg/dL (Neg-Trace); Specific Gravity,Urine 1.016 (1.010-1.025); Urobilinogen,Urine Normal (Normal)
[2021-11-21] MEDS: *HR* Enoxaparin 40 MG/0.4 ML SYRINGE SQ SCH (05:25)
[2021-11-21] MEDS: methylPREDNISolone 125 MG/2 ML VIAL IVP SCH ×2 (05:25→16:50)
[2021-11-21 07:02] LABS: ABG Base Excess 12 mEq/L (-2 to 3); ABG HCO3 41 mEq/L (21-27); ABG Oxygen Saturation 98 % (95-98); ABG PCO2 81 mmHg (35-45); ABG PH 7.31 pH Units (7.32-7.45); ABG PO2 116 mmHg (85-104); ABG TCO2 43 mEq/L (20-26); Blood Gas Modality BiLevel
[2021-11-21 07:57] LABS: ABG Base Excess 14 mEq/L (-2 to 3); ABG HCO3 44 mEq/L (21-27); ABG Oxygen Saturation 95 % (95-98); ABG PCO2 85 mmHg (35-45); ABG PH 7.32 pH Units (7.32-7.45); ABG PO2 86 mmHg (85-104); ABG TCO2 46 mEq/L (20-26); Blood Gas VT 500 cc
[2021-11-21] MEDS ORDERED: carvediloL 6.25 MG TABLET PO SCH (08:00)
[2021-11-21] MEDS: Furosemide 40 MG/4 ML VIAL IVP SCH ×2 (08:59→16:50)
[2021-11-21] MEDS ORDERED: cefTRIAXone 2,000 MG in 0.9 % Sodium Chloride 20 ML IVP SCH (09:00)
[2021-11-21] MEDS ORDERED: predniSONE 20 MG TABLET PO SCH (09:00)
[2021-11-21] MEDS: Azithromycin 250 MG TABLET PO SCH (09:02)
[2021-11-21 10:27] LABS: ABG Base Excess 16 mEq/L (-2 to 3); ABG HCO3 45 mEq/L (21-27); ABG Oxygen Saturation 94 % (95-98); ABG PCO2 80 mmHg (35-45); ABG PH 7.36 pH Units (7.32-7.45); ABG PO2 81 mmHg (85-104); ABG TCO2 47 mEq/L (20-26); Blood Gas VT 500 cc
[2021-11-21] MEDS ORDERED: *HR* Metoprolol 5 MG/5 ML VIAL IVP ONE (14:33)
[2021-11-21] MEDS: carvediloL 6.25 MG TABLET PO SCH ×2 (14:39→15:29)
[2021-11-21] MEDS: Ipratropium Neb 0.5 MG NEBULIZER IH SCH ×2 (15:01→19:57)
[2021-11-21] MEDS: Levalbuterol Neb 1.25 MG/3 ML IH SCH ×2 (15:01→19:57)
[2021-11-21 15:07] LABS: ABG Base Excess 11 mEq/L (-2 to 3); ABG HCO3 39 mEq/L (21-27); ABG Oxygen Saturation 97 % (95-98); ABG PCO2 67 mmHg (35-45); ABG PH 7.37 pH Units (7.32-7.45); ABG PO2 94 mmHg (85-104); ABG TCO2 41 mEq/L (20-26); Blood Gas VT 550 cc
[2021-11-21] MEDS: Sacubitril/Valsartan 24/26 MG 1 TABLET PO SCH (19:43)
[2021-11-22] MEDS: Ipratropium Neb 0.5 MG NEBULIZER IH SCH ×7 (00:14→23:16)
[2021-11-22] MEDS: Melatonin 3 MG TABLET PO PRN ×2 (00:33→20:29)
[2021-11-22] MEDS: QUEtiapine Fumarate 25 MG TABLET PO SCH ×2 (00:33→20:28)
[2021-11-22] MEDS: Levalbuterol Neb 1.25 MG/3 ML IH SCH ×4 (03:32→20:13)
[2021-11-22] MEDS: *HR* Enoxaparin 40 MG/0.4 ML SYRINGE SQ SCH ×2 (05:33→17:00)
[2021-11-22] MEDS: methylPREDNISolone 125 MG/2 ML VIAL IVP SCH ×2 (05:34→16:56)
[2021-11-22 05:44] LABS: Hematocrit 34.9 % (37.5-50.1); Hemoglobin 10.4 g/dL (12.9-16.9); Mean Corpuscular HGB Conc 29.8 g/dL (31.6-35.5); Mean Corpuscular Hemoglobin 27.7 pg (28.0-33.3); Mean Corpuscular Volume 93.1 fL (83.0-100.0); Mean Platelet Volume 10.8 fL (9.4-12.4); Platelet Count 291 K/mcL (140-400); Red Blood Count 3.75 M/mcL (4.19-5.50); Red Cell Distribution Width 15.9 % (11.5-14.5); White Blood Count 16.8 K/mcL (4.3-11.1)
[2021-11-22 06:18] LABS: BUN/Creatinine Ratio 32 (6-26); Blood Urea Nitrogen 38 mg/dL (8-23); Calcium 9.2 mg/dL (8.6-10.3); Carbon Dioxide 40 mEq/L (23-29); Chloride 98 mEq/L (98-107); Glucose 150 mg/dL (70-105); Osmolality,Calculated 308 (280-300); Potassium 3.4 mEq/L (3.5-5.1); Sodium 143 mEq/L (136-145); eGFR For African Americans > 60 (> 60); eGFR For Non-African Americans > 60 (> 60)
[2021-11-22] MEDS: Budesonide/Formoterol 160/4.5 1 PUFF INH IH SCH ×2 (07:47→20:14)
[2021-11-22 08:17] LABS: ABG Base Excess 13 mEq/L (-2 to 3); ABG HCO3 41 mEq/L (21-27); ABG Oxygen Saturation 89 % (95-98); ABG PCO2 68 mmHg (35-45); ABG PH 7.39 pH Units (7.32-7.45); ABG PO2 60 mmHg (85-104); ABG TCO2 43 mEq/L (20-26)
[2021-11-22] MEDS: carvediloL 6.25 MG TABLET PO SCH ×2 (09:12→16:54)
[2021-11-22] MEDS: Azithromycin 250 MG TABLET PO SCH (09:12)
[2021-11-22] MEDS: Furosemide 40 MG/4 ML VIAL IVP SCH ×2 (09:13→16:58)
[2021-11-22] MEDS: Sacubitril/Valsartan 24/26 MG 1 TABLET PO SCH (20:28)
[2021-11-23 02:12] LABS: Hematocrit 34.8 % (37.5-50.1); Hemoglobin 10.6 g/dL (12.9-16.9); Mean Corpuscular HGB Conc 30.5 g/dL (31.6-35.5); Mean Corpuscular Hemoglobin 28.4 pg (28.0-33.3); Mean Corpuscular Volume 93.3 fL (83.0-100.0); Mean Platelet Volume 10.5 fL (9.4-12.4); Platelet Count 289 K/mcL (140-400); Red Blood Count 3.73 M/mcL (4.19-5.50); Red Cell Distribution Width 16.2 % (11.5-14.5); White Blood Count 15.1 K/mcL (4.3-11.1)
[2021-11-23] MEDS: Ipratropium Neb 0.5 MG NEBULIZER IH SCH ×6 (03:58→23:26)
[2021-11-23] MEDS: Levalbuterol Neb 1.25 MG/3 ML IH SCH ×4 (03:58→20:26)
[2021-11-23 04:44] LABS: BUN/Creatinine Ratio 29 (6-26); Blood Urea Nitrogen 38 mg/dL (8-23); Calcium 8.8 mg/dL (8.6-10.3); Carbon Dioxide 32 mEq/L (23-29); Chloride 100 mEq/L (98-107); Glucose 113 mg/dL (70-105); Osmolality,Calculated 306 (280-300); Potassium 3.5 mEq/L (3.5-5.1); Sodium 143 mEq/L (136-145); eGFR For African Americans > 60 (> 60); eGFR For Non-African Americans 54 (> 60)
[2021-11-23] MEDS: *HR* Enoxaparin 40 MG/0.4 ML SYRINGE SQ SCH ×2 (05:28→16:54)
[2021-11-23] MEDS: methylPREDNISolone 125 MG/2 ML VIAL IVP SCH (05:28)
[2021-11-23] MEDS: Budesonide/Formoterol 160/4.5 1 PUFF INH IH SCH ×2 (07:49→20:27)
[2021-11-23] MEDS: Pyridoxine (B-6) 50 MG TABLET PO SCH (08:26)
[2021-11-23] MEDS: carvediloL 6.25 MG TABLET PO SCH ×2 (08:26→16:54)
[2021-11-23] MEDS: Spironolactone 12.5 MG TABLET PO SCH (08:26)
[2021-11-23] MEDS: Cholecalciferol (D-3) 1,000 UNIT (25MCG) TABLET PO SCH (08:26)
[2021-11-23] MEDS: Aspirin Enteric Coated 81 MG Tablet PO SCH (08:27)
[2021-11-23] MEDS: Furosemide 40 MG TABLET PO SCH ×2 (08:27→16:54)
[2021-11-23] MEDS: Azithromycin 250 MG TABLET PO SCH (08:27)
[2021-11-23] MEDS: Cyanocobalamin (B-12) 1,000 MCG TABLET PO SCH (08:27)
[2021-11-23] MEDS: Sacubitril/Valsartan 24/26 MG 1 TABLET PO SCH (20:21)
[2021-11-23] MEDS: QUEtiapine Fumarate 25 MG TABLET PO SCH (20:21)
[2021-11-24] MEDS: Ipratropium Neb 0.5 MG NEBULIZER IH SCH ×6 (03:50→23:55)
[2021-11-24] MEDS: Levalbuterol Neb 1.25 MG/3 ML IH SCH ×4 (03:50→20:24)
[2021-11-24 04:42] LABS: Hemoglobin 11.4 g/dL (12.9-16.9); Mean Corpuscular Hemoglobin 28.1 pg (28.0-33.3); Mean Corpuscular Volume 93.6 fL (83.0-100.0); Mean Platelet Volume 10.3 fL (9.4-12.4); Platelet Count 367 K/mcL (140-400); Red Blood Count 4.06 M/mcL (4.19-5.50); Red Cell Distribution Width 16.2 % (11.5-14.5); White Blood Count 13.6 K/mcL (4.3-11.1)
[2021-11-24 04:50] LABS: BUN/Creatinine Ratio 26 (6-26); Blood Urea Nitrogen 28 mg/dL (8-23); Carbon Dioxide 42 mEq/L (23-29); Chloride 97 mEq/L (98-107); Glucose 109 mg/dL (70-105); Osmolality,Calculated 300 (280-300); Potassium 3.1 mEq/L (3.5-5.1); Sodium 142 mEq/L (136-145); eGFR For African Americans > 60 (> 60); eGFR For Non-African Americans > 60 (> 60)
[2021-11-24] MEDS: *HR* Enoxaparin 40 MG/0.4 ML SYRINGE SQ SCH ×2 (05:55→18:22)
[2021-11-24] MEDS: Budesonide/Formoterol 160/4.5 1 PUFF INH IH SCH ×2 (07:28→20:24)
[2021-11-24] MEDS: Spironolactone 12.5 MG TABLET PO SCH (08:22)
[2021-11-24] MEDS: carvediloL 6.25 MG TABLET PO SCH ×2 (08:22→16:28)
[2021-11-24] MEDS: Aspirin Enteric Coated 81 MG Tablet PO SCH (08:22)
[2021-11-24] MEDS: Cholecalciferol (D-3) 1,000 UNIT (25MCG) TABLET PO SCH (08:23)
[2021-11-24] MEDS: Pyridoxine (B-6) 50 MG TABLET PO SCH (08:23)
[2021-11-24] MEDS: Furosemide 40 MG TABLET PO SCH ×2 (08:23→16:28)
[2021-11-24] MEDS: Azithromycin 250 MG TABLET PO SCH (08:23)
[2021-11-24] MEDS: predniSONE 20 MG TABLET PO SCH (08:23)
[2021-11-24] MEDS: Cyanocobalamin (B-12) 1,000 MCG TABLET PO SCH (08:23)
[2021-11-24] MEDS: Sacubitril/Valsartan 24/26 MG 1 TABLET PO SCH (20:27)
[2021-11-24] MEDS: QUEtiapine Fumarate 25 MG TABLET PO SCH (20:27)
[2021-11-24] MEDS: Melatonin 3 MG TABLET PO PRN (20:27)
[2021-11-25] MEDS: Levalbuterol Neb 1.25 MG/3 ML IH SCH ×3 (04:37→15:29)
[2021-11-25] MEDS: Ipratropium Neb 0.5 MG NEBULIZER IH SCH ×4 (04:37→15:29)
[2021-11-25] MEDS: *HR* Enoxaparin 40 MG/0.4 ML SYRINGE SQ SCH (05:57)
[2021-11-25] MEDS: Budesonide/Formoterol 160/4.5 1 PUFF INH IH SCH (07:23)
[2021-11-25] MEDS: predniSONE 20 MG TABLET PO SCH (08:39)
[2021-11-25] MEDS: Furosemide 40 MG TABLET PO SCH (08:40)
[2021-11-25] MEDS: Cholecalciferol (D-3) 1,000 UNIT (25MCG) TABLET PO SCH (08:40)
[2021-11-25] MEDS: carvediloL 6.25 MG TABLET PO SCH (08:40)
[2021-11-25] MEDS: Aspirin Enteric Coated 81 MG Tablet PO SCH (08:40)
[2021-11-25] MEDS: Pyridoxine (B-6) 50 MG TABLET PO SCH (08:40)
[2021-11-25] MEDS: Cyanocobalamin (B-12) 1,000 MCG TABLET PO SCH (08:40)
[2021-11-25] MEDS: Spironolactone 12.5 MG TABLET PO SCH (08:40)
[2021-11-25 09:13] VITALS: TEMP 97.7
[2021-11-25 11:31] VITALS: BP 138/66; PULSE 90; O2SAT 100
== END 2021-11-25 15:50 | disposition home or self-care (01) | DRG 291 ==
LOC: 2NENU 16:14 → EMEROOARM 16:14 → 2NENU 20:15 → SUATTDRO 22:15
PROVIDERS: ADMIT Internal Medicine; ATTEND Family Medicine